=== PATIENT | female | born 1975 | race Caucasian/White ===

== ENCOUNTER 2020-10-13 10:34 | Outpatient (REF) | payer OTHER, SELFPAY ==
[2020-10-13 13:57] LABS: Hematocrit 39.7 % (37-47); Hemoglobin 12.7 g/dl (12.0-16.0); Mean Corpuscular Hemoglobin 29.9 pg (27.0-33.0); Mean Corpuscular Volume 93.4 fL (80-98); Mean Platelet Volume 9.7 fL (9.4-12.3); Platelet Count 349 X10*3/uL (160-400); Red Blood Count 4.25 X10*6/uL (4.20-5.50); White Blood Count 5.1 X10*3/uL (4.8-10.8)
[2020-10-13 14:10] LABS: Glucose Urine UA NEG (NEG); Leukocyte Esterase Urine NEG (NEG); Nitrite Urine NEG (NEG); Specific Gravity - Urine >= 1.030 (1.005-1.025); Urine Blood 2+ (NEG); Urine Ketones NEG (NEG); Urine Protein NEG (NEG-TRACE)
[2020-10-13 14:13] LABS: Appearance Urine CLOUDY; Color Urine YELLOW
[2020-10-13 14:40] LABS: Amorphous Sediment Urine 4+ /LPF; RBC Urine 0-2 /HPF (0); Squamous Epithelial Cell Urine 1+ /LPF; WBC Urine 0 /HPF (0-4)
[2020-10-13 14:50] LABS: Alanine Aminotransferase 21 U/L (0-31); Albumin Level 4.1 g/dL (3.5-5.0); Alkaline Phosphatase 45 U/L (39-117); Anion Gap 15 (12-20); Aspartate Amino Transferase 16 U/L (5-31); Bilirubin Total < 0.2 mg/dL (0.0-1.0); Blood Urea Nitrogen 19 mg/dL (9-16); Calcium 9.1 mg/dL (8.4-10.2); Carbon Dioxide 24 mmol/L (22-29); Chloride 106 mmol/L (96-108); Cholesterol 311 mg/dL; Estimated Glomerular Filt Rate > 60; Glucose Fasting 123 mg/dL (60-99); HDL Cholesterol 73 mg/dL; Iron 66 mcg/dL (30-160); LDL Cholesterol Calculated 191 mg/dl; Percent Iron Saturation 18 % (15-50); Sodium 140 mmol/L (135-145); Total Iron Binding Capacity 369 mcg/dL (228-428); Total Protein 7.1 g/dL (6.5-8.0); Triglycerides 237 mg/dL; Unsaturated Iron Binding 303 ug/dL
[2020-10-13 14:51] LABS: TSH reflex Free T4 0.86 uIU/mL (0.32-4.0)
[2020-10-13 15:11] LABS: Folate 14.7 ng/mL (> or = 4.0); Vitamin B12 605 pg/mL (200-900)
== END 2020-10-13 10:35 | disposition home or self-care (01) ==
LOC: HO.HMGCLDS 10:34
PROVIDERS: PCP Internal Medicine; Visit Provider Internal Medicine
DX: M79.673 Pain in unspecified foot (principal); Z00.00 Encounter for general adult medical examination without abnormal findings
CPT/HCPCS: 36415; 80053; 80061; 81001; 82607; 82746; 83540; 84443; 85027

== ENCOUNTER 2022-01-03 11:19 | Outpatient (REF) | payer OTHER, SELFPAY ==
[2022-01-03 13:56] LABS: MANUAL DIFF FLAG NO
[2022-01-03 14:10] LABS: Basophils Absolute Auto 0.1 X10*3/uL (0.0-0.2); Basophils Percent Auto 1.2 % (0-2); Eosinophils Absolute Auto 0.2 X10*3/uL (0.0-0.4); Eosinophils Percent Auto 4.2 % (0-4); Hematocrit 41.6 % (37.0-47.0); Hemoglobin 13.3 g/dl (12.0-16.0); Imm Gran Abs Auto 0.04 X10*3/uL (0.00-0.03); Imm Gran Pct Auto 0.7 % (0.0-0.4); Lymphocytes Absolute Auto 1.5 X10*3/uL (1.2-4.9); Lymphocytes Percent Auto 25.9 % (20-40); Mean Corpuscular Hemoglobin 28.9 pg (27.0-33.0); Mean Corpuscular Volume 90.2 fL (80.0-98.0); Mean Platelet Volume 9.6 fL (9.4-12.3); Monocytes Absolute Auto 0.5 X10*3/uL (0.1-1.2); Monocytes Percent Auto 8.1 % (2-11); Neutrophils Absolute Auto 3.4 x10*3/uL (2.0-8.3); Neutrophils Percent Auto 59.9 % (45-73); Platelet Count 353 X10*3/uL (160-400); Red Blood Count 4.61 X10*6/uL (4.20-5.50); Red Cell Distribution Width 11.9 % (11.0-16.0); White Blood Count 5.7 X10*3/uL (4.8-10.8)
[2022-01-03 14:12] LABS: Estimated Average Glucose 128 mg/dL; Hemoglobin A1c % 6.1 %
[2022-01-03 14:20] LABS: Alanine Aminotransferase 35 U/L (0-31); Albumin Level 4.2 g/dL (3.5-5.0); Alkaline Phosphatase 68 U/L (39-117); Anion Gap 13 (12-20); Aspartate Amino Transferase 24 U/L (5-31); Bilirubin Total 0.5 mg/dL (0.0-1.0); Blood Urea Nitrogen 19 mg/dL (9-16); Calcium 9.8 mg/dL (8.4-10.2); Carbon Dioxide 27 mmol/L (22-29); Chloride 106 mmol/L (96-108); Cholesterol 274 mg/dL; Estimated Glomerular Filt Rate > 60; Glucose Fasting 123 mg/dL (60-99); HDL Cholesterol 76 mg/dL; LDL Cholesterol Calculated 176 mg/dl; Potassium 5.2 mmol/L (3.3-5.1); Sodium 141 mmol/L (135-145); Total Protein 7.3 g/dL (6.5-8.0); Triglycerides 111 mg/dL
== END 2022-01-03 11:20 | disposition home or self-care (01) ==
LOC: HO.HMGCLDS 11:19
PROVIDERS: PCP Internal Medicine; Visit Provider Internal Medicine
DX: E78.5 Hyperlipidemia, unspecified (principal); I10 Essential (primary) hypertension; R73.9 Hyperglycemia, unspecified
CPT/HCPCS: 36415; 80053; 80061; 82550; 83036; 85025

== ENCOUNTER 2023-01-15 13:17 | Emergency (ER) | payer OTHER, SELFPAY ==
[2023-01-15 13:21] VITALS: BP 174/81; PULSE 68; RESP 18; TEMP 36.7; O2SAT 100; BMI 29.1
--- NOTE | 2023-01-15 13:27 | ED_ITS ---
HPI - General Adult General Chief complaint: General Medical Stated complaint: High Blood Pressure Headache Time Seen by Provider: 01/15/23 16:45 Source: patient Mode of arrival: ambulatory Limitations: no limitations History of Present Illness HPI narrative: 47-year-old female presents with hypertensive urgency. Patient has a history of hypertension. Over last 3 days, patient has been describing a zijh-jr-vpxfqgyz headache. The headache is bitemporal and frontal. Was not sudden in onset. Intermittent with a gradual onset. Her current pain level as a 4/10. There is no photo or phonophobia. There is no neck pain or stiffness. She has no focal deficits. She denies any nausea vomiting. She denies any chest pain, shortness breath or palpitations. Patient has had similar symptoms when she was 1st d iagnosed with hypertension. She is currently taking 5 mg of olmesartan but increased to 10 mg. She has had no improvement with the 10 mg. Related Data Previous Rx's Medication Instructions Recorded acyclovir 5 % topical ointment 1 appl topical 6XD 7 days #30 grams 10/29/21 coenzyme Q10 75 mg capsule (Ultra 75 mg PO DAILY #30 caps 01/03/22 CoQ10) citalopram 40 mg tablet 40 mg PO DAILY 90 days #90 tabs 01/07/22 metformin 750 mg tablet,extended 750 mg PO DAILY #90 tabs 02/11/22 release 24 hr rosuvastatin 20 mg tablet (Crestor) 20 mg PO DAILY #90 tabs 02/11/22 olmesartan 5 mg tablet 5 mg PO DAILY #90 tabs 04/23/22 labetalol 100 mg tablet 100 mg PO BID #14 tabs 01/15/23 Allergies Allergy/AdvReac Type Severity Reaction Status Date / Time pravastatin AdvReac Intermediate myalgia Verified 01/15/23 12:22 Review of Systems Review of Systems: CONSTITUTIONAL: Denies weight loss, fever and chills. HEENT: Denies changes in vision and hearing. RESPIRATORY: Denies SOB and cough. CV: Denies palpitations no CP. GI: Denies abdominal pain, nausea, vomiting and diarrhea. : Denies dysuria and urinary frequency. MSK: Denies myalgia and joint pain. SKIN: Denies rash and pruritus. NEUROLOGICAL: + headache - syncope. PSYCHIATRIC: recent changes in mood. Denies anxiety and depression. All other ROS are negative unless in HPI [facility] Past Medical History Medical History Annual physical exam Anxiety Back pain Foot pain HTN (hypertension) Hyperglycemia Hyperlipidemia Ovarian cyst Right tennis elbow Type 2 diabetes mellitus Family History Family History Father No problems noted. Mother Non-insulin dependent diabetes mellitus Daughter No problems noted. Brother No problems noted. Brother No problems noted. Brother No problems noted. Brother No problems noted. Social History Social History Housing: House Alcohol intake: never Patient Tobacco Use Status: Never used Tobacco e-Cigarette/Vaping Use: Never Used Advance Directives: No Advance Directives Information Provided: Yes Current occupational status: employed Cognitive needs: No Hearing needs: No Vision needs: Yes Physical Exam ED Vital Signs: Vital Signs - 24 hr 01/15/23 13:21 01/15/23 15:28 01/15/23 17:21 Temperature 98.1 F 97.7 F Pulse Rate 68 62 71 Respiratory Rate 18 16 18 Blood Pressure 174/81 H 220/103 H 198/98 H Pulse Oximetry 100 100 100 Oxygen Delivery Method Room Air Room Air Room Air 01/15/23 18:00 Temperature Pulse Rate 65 Respiratory Rate 16 Blood Pressure 155/82 H Pulse Oximetry 98 Oxygen Delivery Method Room Air BMI result Body Mass Index 29.1 GEN: Well developed, no acute distress, alert, oriented HEENT: Normocephalic, atraumatic, normal external ears, nose appears normal, no oropharyngeal edema or exudates Eyes: Normal to appearance Neck: Supple, no lymphadenopathy Respiratory: Talks in complete sentences, no respiratory distress, clear to auscultation bilaterally Cardiovascular: Regular rate and rhythm, no murmurs rubs or gallops Abdomen: Soft, nontender, nondistended, no guarding, no rebound Back: No CVA tenderness Extremities: No clubbing cyanosis or edema Neurologic: No focal neurologic deficits, cranial nerves 2-12 intact, strength is 5/5 bilaterally Skin: No rash Course Course Course Narrative: RME- 47-year-old female with past medical history significant for diabetes, hypertension presents for evaluation of high blood pressure. Patient reports her blood pressure has been elevated for the last 4 days. She takes olmesartan 5 mg daily but has been taking double dose for the last 4 days and her blood pressure in triage was 174/81. Patient appears well, denies chest pain or shortness of breath Reevaluation(s) Reevaluation #1: The workup is complete. Her blood pressure is significantly improved. Our goal was for a 20% reduction however she responded very well to labetalol. She will continue to take labetalol 100 mg twice daily and almost started 5 mg daily. She should follow-up with her primary care provider. The CT scan of her head did not identify any intracranial findings. EKG identified no evidence of LVH and her basic metabolic panel identified no evidence of hypokalemia or renal dysfunction. All results were discussed with the patient. Understands our plan. Time: 18:40 Medications Administered Discontinued Medications Generic Name Dose Route Start Last Admin Trade Name Freq PRN Reason Stop Dose Admin Labetalol HCl 100 mg 01/15/23 16:45 01/15/23 16:59 Labetalol Hcl 100 Mg Tablet PO 01/15/23 16:46 100 mg ONCE ONE Administration Protocol Medical Decision Making Medical Decision Making MDM Narrative: 47-year-old female presents with hypertensive urgency. She does have a mild headache. Examination is benign. See the differential diagnosis below. Would like to rule out renal dysfunction with metabolic panel. Will rule LVH and chronic medium remodeling with an EKG. Patient is currently on 5-10 mg of olme sartan daily. This appears to be a low-dose. However, she did double the medication and has had no change in her blood pressure readings. I suspect patient will require a 2nd agent in order to better control her blood pressure and have a synergistic effect of the olmesartan. Patient did take the olmesartan earlier. Would probably choose the labetalol versus amlodipine. I am leaning on the side of labetalol at this time as this may also improve her headache. There is no emergent indication for imaging at this time she has no focal deficits, pain is mild to moderate. She has no neck stiffness. This was not sudden onset. Doubt subarachnoid hemorrhage. Will re-evaluate the patient and should there be any clinical changes, would consider CT scan at that time. Patient may warrant hospitalization of her blood pressure is not under control prior to potential disposition. Differential Diagnosis Differential Diagnoses: The differential diagnosis associated with the presentation includes (Hypertension of urgency, renal dysfunction, hypokalemia, electrolyte abnormality, stress, anxiety, essential hypertension, renal vascular disease) Hypertension, hypertensive urgency Admission/Observation Consideration of admission/observation: Escalation of care including admission/observation considered (If blood pressure does not become control, patient may warrant hospitalization for blood pressure management) Lab Data MDM Lab Attestation statement: I reviewed the patient's lab results. 01/15/23 16:53 Labs: Lab Results 01/15/23 Range/Units 16:53 Sodium 142 (135-145) mmol/L Potassium 4.1 D (3.3-5.1) mmol/L Chloride 106 (96-108) mmol/L Carbon Dioxide 27 (22-29) mmol/L Anion Gap 13 (12-20) BUN 19 H (9-16) mg/dL Creatinine 0.76 (0.5-1.4) mg/dL Estim Creat Clear Calc 83.2 Estimated GFR > 60 Random Glucose 121 H (60-115) mg/dL Calcium 9.4 (8.4-10.2) mg/dL Independent Interpretation I performed an independent interpretation of an: EKG (Normal sinus rhythm heart rate 64, normal intervals, no acute ST elevations depressions, no evidence of LVH) and CT Scan (Head: No acute intracranial findings) Radiology Impression Discussion of test interpretation with radiology: I have reviewed the radiologist's reading. ( CT/CT head/brain wo IV con IMPRESSION: Unremarkable exam. Dictated By:Puja Mccormickigned By:<Electronically signed by Puja Mccormick MD in [place]>01/15/23 6035) External Record Review External record reviewed: Outpatient record (Urgent care from earlier today) Tests considered The following testing was considered but not selected: CT head: Patient reports mild headache, no meningeal signs, no nuchal rigidity, no sudden-onset headache doubt subarachnoid hemorrhage or need for emergent imaging at this time, consider re-evaluation for study upon my clinical re- evaluation of patient. Prescription Management I considered prescription management with: Pain Medication and Other (Antihypertensive medications) Chronic Conditions Patient?s care impacted by: Hypertension Discharge Plan Discharge Clinical Impression: Hypertensive urgency Patient Disposition: Home, Self-Care Instructions: Chronic Hypertension (ED), DASH Eating Plan (ED), Hypertensive Crisis (ED) Additional Instructions: Please continue your almost started at 5 mg daily. Add labetalol 100 mg twice daily. I am recommending close follow-up with her primary care provider within the next couple days for repeat blood pressure check and medication adjustment. Should you have worsening or concerning symptoms, please return to the emergency department for re-evaluation. Prescriptions: New labetalol 100 mg tablet 100 mg PO BID Qty: 14 0RF No Action acyclovir 5 % ointment 1 appl topical 6XD 7 Days Qty: 30 0RF citalopram 40 mg tablet 40 mg PO DAILY 90 Days Qty: 90 3RF olmesartan 5 mg tablet 5 mg PO DAILY Qty: 90 3RF rosuvastatin [Crestor] 20 mg tablet 20 mg PO DAILY Qty: 90 3RF metformin 750 mg tablet extended release 24 hr 750 mg PO DAILY Qty: 90 3RF Ultra CoQ10 75 mg capsule 75 mg PO DAILY Qty: 30 4RF Referrals: Valerie Lazaro MD [Primary Care Provider] - 2 days
[2023-01-15 15:28] VITALS: BP 220/103; PULSE 62; RESP 16; TEMP 36.5; O2SAT 100
[2023-01-15 17:21] VITALS: BP 198/98; PULSE 71; RESP 18; O2SAT 100
[2023-01-15 18:00] VITALS: BP 155/82; PULSE 65; RESP 16; O2SAT 98
== END 2023-01-15 18:46 | disposition home or self-care (01) ==
PROVIDERS: Emergency Provider Emergency Medicine; PCP Internal Medicine
DX: I16.0 Hypertensive urgency (principal); E11.9 Type 2 diabetes mellitus without complications; I10 Essential (primary) hypertension; E78.5 Hyperlipidemia, unspecified; Z79.84 Long term (current) use of oral hypoglycemic drugs; Z79.899 Other long term (current) drug therapy
CPT/HCPCS: 36415; 70450; 80048; 93005; 99284

== ENCOUNTER 2023-02-10 07:16 | Outpatient (REF) | payer OTHER, SELFPAY ==
[2023-02-10 12:29] LABS: Alanine Aminotransferase 26 U/L (0-31); Alkaline Phosphatase 85 U/L (39-117); Anion Gap 17 (12-20); Aspartate Amino Transferase 18 U/L (5-31); Bilirubin Total 0.3 mg/dL (0.0-1.0); Blood Urea Nitrogen 19 mg/dL (9-16); Calcium 9.7 mg/dL (8.4-10.2); Carbon Dioxide 22 mmol/L (22-29); Chloride 108 mmol/L (96-108); Cholesterol 313 mg/dL; Estimated Glomerular Filt Rate > 60; Glucose Fasting 140 mg/dL (60-99); HDL Cholesterol 56 mg/dL; LDL Cholesterol Calculated 213 mg/dl; Potassium 4.4 mmol/L (3.3-5.1); Sodium 143 mmol/L (135-145); Total Protein 7.2 g/dL (6.5-8.0); Triglycerides 222 mg/dL
[2023-02-10 16:17] LABS: Estimated Average Glucose 134 mg/dL; Hemoglobin A1c % 6.3 %
== END 2023-02-10 07:17 | disposition home or self-care (01) ==
LOC: HO.HMGCLDS 07:16
PROVIDERS: PCP Internal Medicine; Visit Provider Internal Medicine
DX: Z00.00 Encounter for general adult medical examination without abnormal findings (principal); I10 Essential (primary) hypertension; E78.5 Hyperlipidemia, unspecified; R73.9 Hyperglycemia, unspecified
CPT/HCPCS: 36415; 80053; 80061; 83036

== ENCOUNTER 2023-02-12 11:24 | Outpatient (AMB) | payer OTHER, SELFPAY ==
--- NOTE | 2023-02-12 11:51 | A.OFFPC_ITS ---
Vital Signs 02/12/23 11:53 Weight 160 lb 2 oz BP 120/74 Blood Pressure Location Rt brachial Position Sitting Pulse 76 Pulse Source Pulse Oximeter Pulse Oximetry (%) 97 Oxygen Delivery Method Room Air Intake Visit Reasons: PE Allergies pravastatin Adverse Reaction (Intermediate, Verified 02/12/23 11:53) myalgia Medication List - Last Reconciled 02/12/23 by Valerie Lazaro MD acyclovir 5% 1 appl topical 6XD 7 days amlodipine-olmesartan 5-20 mg 1 tab PO DAILY citalopram 40 mg PO DAILY 90 days coenzyme Q10 60 mg PO DAILY labetalol 100 mg PO BID rosuvastatin (Crestor) 5 mg PO DAILY Tobacco use date assessed: 02/12/23 Dental Screening Dental Screen Date: 02/12/23 Did you have a dental visit in the last 12 months?: Yes Did you have a dental problem in the last 6 months where you did not have access to dental care?: No Was dental information given to patient?: Patient has dentist HPI PE HPI Details Patient presents for physical. She will to the ER month ago with complaint of headache and high blood pressure. Patient was started on labetalol and continue to take 5 mg of olmesartan [facility] Medical History (Updated 02/12/23 @ 12:34 by Valerie Lazaro MD) Annual physical exam Anxiety Back pain Foot pain HTN (hypertension) Hyperglycemia Hyperlipidemia Ovarian cyst Right tennis elbow Type 2 diabetes mellitus Family History Father No problems noted. Mother Non-insulin dependent diabetes mellitus Daughter No problems noted. Brother No problems noted. Brother No problems noted. Brother No problems noted. Brother No problems noted. Social History Housing: House Alcohol intake: never Patient Tobacco Use Status: Never used Tobacco e-Cigarette/Vaping Use: Never Used Current occupational status: employed Cognitive needs: No Hearing needs: No Vision needs: Yes Questionnaire Thrive Questionnaire Date Thrive assessed: 02/11/22 AUDIT C Alcohol Use Questionnaire (AUDIT-C) 1. How often do you have a drink containing alcohol?: 2-3 times a week 2. How many drinks containing alcohol do you have on a typical day when you are drinking?: 1 or 2 3. How often do you have six or more drinks on one occasion?: Never Total Score: 3 Score Reviewed/Action Taken: No ASUNCION-7 AMB Questionnaire ASUNCION-7 Date ASUNCION - 7 assessed: 02/11/22 Source: Developed by Drs. Kg Ellington, Elisabeth Sandoval, Jg Yan and colleagues, with an educational jacob from [employer]. Review of Systems Const All systems reviewed & are unremarkable except as noted in HPI and below Reports no additional complaints Eyes Reports no additional complaints ENT Reports no additional complaints Card Reports no additional complaints Resp Reports no additional complaints GI Reports no additional complaints Reports no additional complaints Physical exam (Primary Care) Vital Signs: Last Vital Signs Pulse 76 02/12/23 11:53 BP 120/74 02/12/23 11:53 Pulse Ox 97 02/12/23 11:53 Oxygen Delivery Method Room Air 02/12/23 11:53 Tobacco/Smoking Status: Tobacco use Status Tobacco use date assessed 02/12/23 02/12/23 11:56 Patient Tobacco Use Status Never used Tobacco 02/12/23 11:52 e-Cigarette/Vaping Use Never Used 02/12/23 11:52 Thrive Assessment: Date of Thrive Assessment Date Thrive assessed 02/11/22 02/12/23 11:52 Const General: no acute distress HENMT Head: Yes normal to inspection Ears: hearing grossly normal bilaterally Face and sinus: Yes normal facial exam Eyes General: appearance normal, both eyes and all related structures Neck Neck: Yes no lymphadenopathy and Yes supple Resp Effort & Inspection: normal respiratory effort Auscultation: clear to auscultation bilaterally Cardio Rhythm: regular rhythm Heart sounds: S1 normal heart sound present and S2 normal heart sound present GI Inspection: Yes normal to inspection Palpation (GI): Soft to palpation Percussion: Yes normal to percussion Auscultation: normal bowel sounds Assessment and Plan Assessment & Plan (1) Type 2 diabetes mellitus: Comment: A1C 6.3, PATIENT DECLINED TAKING METFORMIN Code(s): E11.9 - Type 2 diabetes mellitus without complications Plan: ADA DIET INCREASE EXERCISE WEIGHT LOSS DISCUSSED WITH THE PATIENT. (2) HTN (hypertension): Code(s): I10 - Essential (primary) hypertension Plan: Start amlodipine with olmesartan 5/20 and continue labetalol for 1 month. (3) Hyperlipidemia: Comment: Intolerant to pravastatin, myalgia Code(s): E78.5 - Hyperlipidemia, unspecified Plan: Try 5 mg of Crestor with CO Q10 check lipid profile in 1 month (4) Annual physical exam: Comment: Pap and mammogram by stockbroking dealer Code(s): Z00.00 - Encounter for general adult medical examination without abnormal findings Plan: Well-balanced diet regular exercise discussed with the patient. She will think about colonoscopy Orders: Orders Comprehensive Met. Panel 1 Month E11.9 - Type 2 diabetes mellitus without complications, E78.5 - Hyperlipidemia, unspecified, I10 - Essential (primary) hypertension Lipid Panel 1 Month E11.9 - Type 2 diabetes mellitus without complications, E78.5 - Hyperlipidemia, unspecified, I10 - Essential (primary) hypertension Hemoglobin A1c 1 Month E11.9 - Type 2 diabetes mellitus without complications, E78.5 - Hyperlipidemia, unspecified, I10 - Essential (primary) hypertension Medications: New coenzyme Q10 60 mg PO DAILY 90 caps 1RF amlodipine-olmesartan 5-20 mg 1 tab PO DAILY 30 tabs 1RF rosuvastatin (Crestor) 5 mg PO DAILY 30 tabs 0RF Refilled labetalol 100 mg PO BID 60 tabs 1RF citalopram 40 mg PO DAILY 90 days 90 tabs 3RF Discontinued olmesartan Discontinued Reason: Doctor's Order 5 mg PO DAILY 90 tabs 3RF Coding Level of Care Code Est Pt Prev Care 40-64y(43133) Diagnoses Type 2 diabetes mellitus E11.9 HTN (hypertension) I10 Hyperlipidemia E78.5 Annual physical exam Z00.00
[2023-02-12 11:53] VITALS: BP 120/74; PULSE 76; O2SAT 97
== END 2023-02-12 12:34 | disposition home or self-care (01) ==
PROVIDERS: Visit Provider Internal Medicine
DX: E11.9 Type 2 diabetes mellitus without complications (principal); I10 Essential (primary) hypertension; E78.5 Hyperlipidemia, unspecified; Z00.00 Encounter for general adult medical examination without abnormal findings
CPT/HCPCS: 99396

== ENCOUNTER 2023-04-19 10:11 | Outpatient (REF) | payer OTHER, SELFPAY | END 2023-04-19 10:12 | disposition home or self-care (01) | LOC: HO.HMGCLDS 10:11 | PROVIDERS: PCP Internal Medicine; Visit Provider Internal Medicine | DX: E11.9 Type 2 diabetes mellitus without complications (principal); I10 Essential (primary) hypertension; E78.5 Hyperlipidemia, unspecified | CPT/HCPCS: 36415; 80053; 80061; 83036 ==

== ENCOUNTER 2023-04-24 12:26 | Outpatient (AMB) | payer OTHER, SELFPAY ==
--- NOTE | 2023-04-24 12:31 | MHC.PC.OV ---
Vital Signs 04/24/23 12:32 Height 5 ft 2 in Weight 160 lb BMI 29.3 BP 122/70 Blood Pressure Location Lt brachial Position Sitting Pulse 85 Pulse Source Pulse Oximeter Pulse Oximetry (%) 97 Oxygen Delivery Method Room Air Intake Visit Reasons: 5 week follow up, HTN Intake Note: Pt is here today for 5 weeks follow up visit. Allergies pravastatin Adverse Reaction (Intermediate, Verified 04/24/23 12:34) myalgia Medication List - Last Reconciled 04/24/23 by Valerie Lazaro MD acyclovir 5% 1 appl topical 6XD 7 days amlodipine-olmesartan 5-20 mg 1 tab PO DAILY citalopram 40 mg PO DAILY 90 days coenzyme Q10 60 mg PO DAILY labetalol 100 mg PO BID rosuvastatin (Crestor) 10 mg PO DAILY Tobacco use date assessed: 04/24/23 HPI 5 week follow up, HTN HPI Details Patient presents for the follow-up on hypertension hyperlipidemia stable on current medications. Patient has been following ADA diet for hyperglycemia. [facility] Medical History HTN (hypertension) Right tennis elbow Hyperglycemia Annual physical exam Foot pain Type 2 diabetes mellitus Ovarian cyst Back pain Hyperlipidemia Anxiety Family History Father No problems noted. Mother Non-insulin dependent diabetes mellitus Daughter No problems noted. Brother No problems noted. Brother No problems noted. Brother No problems noted. Brother No problems noted. Social History Housing: House Alcohol intake: never Patient Tobacco Use Status: Never used Tobacco e-Cigarette/Vaping Use: Never Used Current occupational status: employed Cognitive needs: No Hearing needs: No Vision needs: Yes Questionnaire Thrive Questionnaire Date Thrive assessed: 02/11/22 ASUNCION-7 AMB Questionnaire ASUNCION-7 Date ASUNCION - 7 assessed: 02/11/22 Source: Developed by Drs. Kg Ellington, Elisabeth Sandoval, Jg Yan and colleagues, with an educational jacob from [employer] Review of Systems Const All systems reviewed & are unremarkable except as noted in HPI and below Reports no additional complaints Eyes Reports no additional complaints ENT Reports no additional complaints Card Reports no additional complaints Resp Reports no additional complaints GI Reports no additional complaints Reports no additional complaints Physical exam (Primary Care) Vital Signs: Last Vital Signs Pulse 85 04/24/23 12:32 BP 122/70 04/24/23 12:32 Pulse Ox 97 04/24/23 12:32 Oxygen Delivery Method Room Air 04/24/23 12:32 BMI result Body Mass Index 29.3 Tobacco/Smoking Status: Tobacco use Status Tobacco use date assessed 04/24/23 04/24/23 12:36 Patient Tobacco Use Status Never used Tobacco 04/24/23 12:31 e-Cigarette/Vaping Use Never Used 04/24/23 12:31 Thrive Assessment: Date of Thrive Assessment Date Thrive assessed 02/11/22 04/24/23 12:31 Const General: no acute distress HENMT Head: Yes normal to inspection Ears: hearing grossly normal bilaterally Face and sinus: Yes normal facial exam Mouth: Normal oral and palatal mucosa present Eyes General: appearance normal, both eyes and all related structures Neck Neck: Yes supple Resp Effort & Inspection: normal respiratory effort Auscultation: clear to auscultation bilaterally Cardio Rhythm: regular rhythm Heart sounds: S1 normal heart sound present and S2 normal heart sound present GI Inspection: Yes normal to inspection Palpation (GI): Soft to palpation Assessment and Plan Assessment & Plan (1) Type 2 diabetes mellitus: Comment: A1C 6.3, PATIENT DECLINED TAKING METFORMIN Code(s): E11.9 - Type 2 diabetes mellitus without complications Plan: A1c is 6.3, ADA diet increase physical activity discussed with the patient. She will try metformin 750 mg a day. Patient follow-up in 3 months with a fasting labs before (2) HTN (hypertension): Code(s): I10 - Essential (primary) hypertension Plan: Continue current medications (3) Hyperlipidemia: Comment: Intolerant to pravastatin, myalgia Code(s): E78.5 - Hyperlipidemia, unspecified Plan: Increase Crestor to 10 mg a day check lipid profile in 3 months Orders: Orders Complete Blood Count Auto Diff 3 Months E11.9 - Type 2 diabetes mellitus without complications, E78.5 - Hyperlipidemia, unspecified, I10 - Essential (primary) hypertension Comprehensive [place]. Panel Fast 3 Months E11.9 - Type 2 diabetes mellitus without complications, E78.5 - Hyperlipidemia, unspecified, I10 - Essential (primary) hypertension Hemoglobin A1c 3 Months E11.9 - Type 2 diabetes mellitus without complications, E78.5 - Hyperlipidemia, unspecified, I10 - Essential (primary) hypertension Lipid Panel 3 Months E11.9 - Type 2 diabetes mellitus without complications, E78.5 - Hyperlipidemia, unspecified, I10 - Essential (primary) hypertension Microalbumin, Random (w Creat) 3 Months E11.9 - Type 2 diabetes mellitus without complications, E78.5 - Hyperlipidemia, unspecified, I10 - Essential (primary) hypertension Medications: New rosuvastatin (Crestor) 10 mg PO DAILY 90 tabs 3RF blood-glucose sensor (FreeStyle Vincenzo 3 Sensor device) As directed 2 ea 6RF metformin ER 750 mg PO DAILY 90 tabs 0RF Refilled amlodipine-olmesartan 5-20 mg 1 tab PO DAILY 90 tabs 3RF Discontinued labetalol Discontinued Reason: Doctor's Order 100 mg PO BID 60 tabs 1RF rosuvastatin (Crestor) Discontinued Reason: Doctor's Order 5 mg PO DAILY 30 tabs 0RF Coding Level of Care Code Est Pt Level 4 (02425) Diagnoses Type 2 diabetes mellitus E11.9 HTN (hypertension) I10 Hyperlipidemia E78.5
[2023-04-24 12:32] VITALS: BP 122/70; PULSE 85; O2SAT 97; BMI 29.3
== END 2023-04-24 13:07 | disposition home or self-care (01) ==
PROVIDERS: PCP Internal Medicine; Visit Provider Internal Medicine
DX: E11.9 Type 2 diabetes mellitus without complications (principal); I10 Essential (primary) hypertension; E78.5 Hyperlipidemia, unspecified
CPT/HCPCS: 99214

== ENCOUNTER 2023-08-02 10:29 | Outpatient (REF) | payer OTHER, SELFPAY ==
[2023-08-02 11:29] LABS: MANUAL DIFF FLAG NO
[2023-08-02 11:41] LABS: Basophils Absolute Auto 0.1 X10*3/uL (0.0-0.2); Basophils Percent Auto 1.3 % (0-2); Eosinophils Absolute Auto 0.1 X10*3/uL (0.0-0.4); Eosinophils Percent Auto 2.6 % (0-4); Hematocrit 40.4 % (37.0-47.0); Hemoglobin 13.2 g/dl (12.0-16.0); Imm Gran Abs Auto 0.03 X10*3/uL (0.00-0.03); Imm Gran Pct Auto 0.5 % (0.0-0.4); Lymphocytes Absolute Auto 1.5 X10*3/uL (1.2-4.9); Lymphocytes Percent Auto 26.7 % (20-40); Mean Corpuscular HGB Conc 32.7 g/dl (31.0-35.0); Mean Corpuscular Hemoglobin 28.9 pg (27.0-33.0); Mean Corpuscular Volume 88.6 fL (80.0-98.0); Mean Platelet Volume 9.3 fL (9.4-12.3); Monocytes Absolute Auto 0.3 X10*3/uL (0.1-1.2); Monocytes Percent Auto 5.9 % (2-11); Neutrophils Absolute Auto 3.5 x10*3/uL (2.0-8.3); Platelet Count 350 X10*3/uL (160-400); Red Blood Count 4.56 X10*6/uL (4.20-5.50); Red Cell Distribution Width 11.7 % (11.0-16.0); White Blood Count 5.5 X10*3/uL (4.8-10.8)
[2023-08-02 11:45] LABS: Estimated Average Glucose 134 mg/dL; Hemoglobin A1c % 6.3 % (<6.0)
[2023-08-02 12:02] LABS: Alanine Aminotransferase 34 U/L (0-31); Albumin Level 4.1 g/dL (3.5-5.0); Alkaline Phosphatase 86 U/L (39-117); Anion Gap 11 (12-20); Aspartate Amino Transferase 23 U/L (5-31); Bilirubin Total 0.3 mg/dL (0.0-1.0); Blood Urea Nitrogen 18 mg/dL (9-16); Calcium 9.5 mg/dL (8.4-10.2); Carbon Dioxide 27 mmol/L (22-29); Chloride 107 mmol/L (96-108); Cholesterol 202 mg/dL (<200); Estimated Glomerular Filt Rate > 60; Glucose Fasting 121 mg/dL (60-99); HDL Cholesterol 66 mg/dL (>40); LDL Cholesterol Calculated 108 mg/dL (<100); Potassium 4.3 mmol/L (3.3-5.1); Sodium 141 mmol/L (135-145); Total Protein 7.4 g/dL (6.5-8.0); Triglycerides 140 mg/dL (<150)
[2023-08-02 13:49] LABS: Creatinine Urine 144.68 mg/dL; Microalbum/Creatinine Ratio Ur 7.6 ug/mg cr (<30)
== END 2023-08-02 10:30 | disposition home or self-care (01) ==
LOC: HO.HMGCLDS 10:29
PROVIDERS: PCP Internal Medicine; Visit Provider Internal Medicine
DX: E11.9 Type 2 diabetes mellitus without complications (principal); E78.5 Hyperlipidemia, unspecified; I10 Essential (primary) hypertension
CPT/HCPCS: 36415; 80053; 80061; 82043; 82570; 83036; 85025

== ENCOUNTER 2023-08-06 09:34 | Outpatient (AMB) | payer OTHER, SELFPAY ==
[2023-08-06 09:53] VITALS: BP 132/80; PULSE 70; O2SAT 99
--- NOTE | 2023-08-06 09:53 | A.OFFPC_ITS ---
Vital Signs 08/06/23 09:53 Height 5 ft 2 in Weight 164 lb BMI 30.0 BP 132/80 Blood Pressure Location Lt brachial Position Sitting Pulse 70 Pulse Source Pulse Oximeter Pulse Oximetry (%) 99 Oxygen Delivery Method Room Air Intake Visit Reasons: 3 month follow up DM / HTN Intake Note: Pt is here today for 3 months follow up visit on DM and HTN. Pt states that she has been having headaches for last 2 weeks. Allergies pravastatin Adverse Reaction (Intermediate, Verified 08/06/23 09:57) myalgia Medication List - Last Reconciled 08/06/23 by Valerie Lazaro MD acyclovir 5% 1 appl topical 6XD 7 days amlodipine-olmesartan 5-20 mg 1 tab PO DAILY blood-glucose sensor (Intent HQStyle Vincenzo 3 Sensor device) As directed citalopram 40 mg PO DAILY 90 days coenzyme Q10 60 mg PO DAILY dapagliflozin propanediol (Farxiga) 5 mg PO DAILY meloxicam 15 mg PO DAILY metformin ER 750 mg PO DAILY rosuvastatin (Crestor) 10 mg PO DAILY Tobacco use date assessed: 08/06/23 Dental Screening Dental Screen Date: 08/06/23 Did you have a dental visit in the last 12 months?: Yes Did you have a dental problem in the last 6 months where you did not have access to dental care?: No Was dental information given to patient?: Patient has dentist HPI 3 month follow up DM / HTN HPI Details Pt presents for follow-up of hypertension type 2 diabetes and hyperlipidemia. She complains of 2 weeks of daily CHERRY right foot occipital region and neck pain and stiffness. Patient denies nausea vomiting change in vision weakness or numbness in extremities. She has been under increased stress at work [employer] [employer] [employer] Medical History HTN (hypertension) Right tennis elbow Hyperglycemia Annual physical exam Foot pain Type 2 diabetes mellitus Ovarian cyst Back pain Hyperlipidemia Anxiety Family History Father No problems noted. Mother Non-insulin dependent diabetes mellitus Daughter No problems noted. Brother No problems noted. Brother No problems noted. Brother No problems noted. Brother No problems noted. Social History Housing: House Alcohol intake: never Patient Tobacco Use Status: Never used Tobacco e-Cigarette/Vaping Use: Never Used Current occupational status: employed Cognitive needs: No Hearing needs: No Vision needs: Yes Questionnaire PHQ-9 Over the last 2 weeks, how often have you been bothered by any of the following problems? 1. Little interest or pleasure in doing things: not at all 2. Feeling down, depressed, or hopeless: several days 3. Trouble falling or staying asleep, or sleeping too much: not at all 4. Feeling tired or having little energy: more than half the days 5. Poor appetite or overeating: not at all 6. Feeling bad about yourself - or that you are a failure or have let yourself or your family down: not at all 7. Trouble concentrating on things, such as reading the newspaper or watching television: not at all 8. Moving or speaking so slowly that other people could have noticed. Or the opposite - being so fidgety or restless that you have been moving around a lot more than usual: not at all 9. Thoughts that you would be better off or of hurting yourself in some way: not at all Total score: 3 Depression Screening Interpretation: Negative Depression Screening Done: Yes Source: Developed by Drs. Kg Ellington, Elisabeth Sandoval, Jg Yan and colleagues, with an educational jacob from [employer]. Thrive Questionnaire Date Thrive assessed: 08/06/23 I am a: Patient What is your living situation today?: I have a steady place to live Within the past 12 months, did the food you bought not last and you didn't have the money to get more?: Never true Within the past 12 months, did you worry whether your food would run out before you got money to buy more?: Never true Do you have trouble paying for medicines?: No Do you have trouble getting transportation to medical appointments?: No Do you have trouble paying your heating and electricity bill?: No Do you have trouble taking care of your child, family member or friend?: No Do you have trouble with day-to-day activities such as bathing, preparing meals, shopping, managing finances, etc.?: No Are you currently unemployed and looking for a job?: No Are you interested in more education?: No Please select the resources that you would like help with: None Currently or been in a relationship where the following occur: no concerns reported THRIVE Score: 0 AUDIT C Alcohol Use Questionnaire (AUDIT-C) 1. How often do you have a drink containing alcohol?: Monthly or less 2. How many drinks containing alcohol do you have on a typical day when you are drinking?: 1 or 2 3. How often do you have six or more drinks on one occasion?: Never Total Score: 1 ASUNCION-7 AMB Questionnaire ASUNCION-7 Date ASUNCION - 7 assessed: 08/06/23 Feeling nervous, anxious, or on edge: 2 = More than half the days Not being able to stop or control worryin = Several days Worrying too much about different things: 1 = Several days Trouble relaxin = Several days Being so restless that it is hard to sit still: 0 = Not at all Becoming easily annoyed or irritable: 2 = More than half the days Feeling afraid as if something awful might happen: 0 = Not at all Total ASUNCION-7 score (0-4 normal; 5-9 mild; 10-14 moderate; 15-21 severe): 7 Source: Developed by Drs. Kg Ellington, Elisabeth Sandoval, Jg Yan and colleagues, with an educational jacob from [employer]. Review of Systems Const All systems reviewed & are unremarkable except as noted in HPI and below Reports no additional complaints Eyes Reports no additional complaints ENT Reports no additional complaints Card Reports no additional complaints Resp Reports no additional complaints GI Reports no additional complaints Reports no additional complaints Physical exam (Primary Care) Vital Signs: Last Vital Signs Pulse 70 08/06/23 09:53 BP 132/80 08/06/23 09:53 Pulse Ox 99 08/06/23 09:53 Oxygen Delivery Method Room Air 08/06/23 09:53 BMI result Body Mass Index 30.0 Tobacco/Smoking Status: Tobacco use Status Tobacco use date assessed 08/06/23 08/06/23 10:02 Patient Tobacco Use Status Never used Tobacco 08/06/23 10:02 e-Cigarette/Vaping Use Never Used 08/06/23 10:02 Depression Screening Interpretation: Negative Thrive Assessment: Date of Thrive Assessment Date Thrive assessed 02/11/22 08/06/23 10:02 Currently or been in a relationship where the following occur: no concerns reported Const General: no acute distress HENMT Head: Yes normal to inspection Face and sinus: Yes normal facial exam Mouth: Normal oral and palatal mucosa present Throat: Yes posterior oropharynx normal Neck Other: Reproducible tenderness over right occipital and paraspinal cervical region right more than left Neck: Yes no lymphadenopathy and Yes supple Resp Effort & Inspection: normal respiratory effort Auscultation: clear to auscultation bilaterally Cardio Rhythm: regular rhythm Heart sounds: S1 normal heart sound present and S2 normal heart sound present GI Inspection: Yes normal to inspection Palpation (GI): Soft to palpation Auscultation: normal bowel sounds Neuro Cranial nerves: Yes CN's II-XII intact bilaterally Gait exam (Neuro): Normal gait present Assessment and Plan Assessment & Plan (1) Type 2 diabetes mellitus: Comment: A1C 6.3, Code(s): E11.9 - Type 2 diabetes mellitus without complications Plan: ADA diet increase exercise weight loss discussed with the patient. She will increase metformin to 750 mg twice a day, follow-up in 4 months (2) HTN (hypertension): Code(s): I10 - Essential (primary) hypertension Plan: Continue current medications (3) Hyperlipidemia: Comment: Intolerant to pravastatin, myalgia Code(s): E78.5 - Hyperlipidemia, unspecified Plan: Continue low-cholesterol diet (4) Headache: Code(s): R51.9 - Headache, unspecified Plan: For tension headache stress management discussed with the patient, neck stretching exercises and massage recommended. Meloxicam for 1 week is prescribed Orders: Orders Comprehensive [place]. Panel Fast 4 Months E11.9 - Type 2 diabetes mellitus without complications, E78.5 - Hyperlipidemia, unspecified, I10 - Essential (primary) hypertension, R51.9 - Headache, unspecified Hemoglobin A1c 4 Months E11.9 - Type 2 diabetes mellitus without complications, E78.5 - Hyperlipidemia, unspecified, I10 - Essential (primary) hypertension, R51.9 - Headache, unspecified Lipid Panel 4 Months E11.9 - Type 2 diabetes mellitus without complications, E78.5 - Hyperlipidemia, unspecified, I10 - Essential (primary) hypertension, R51.9 - Headache, unspecified Referrals Cologuard Test E11.9 - Type 2 diabetes mellitus without complications, E78.5 - Hyperlipidemia, unspecified, I10 - Essential (primary) hypertension, R51.9 - Headache, unspecified, Z12.11 - Encounter for screening for malignant neoplasm of colon, Z12.12 - Encounter for screening for malignant neoplasm of rectum Medications: New meloxicam 15 mg PO DAILY 7 tabs 0RF Changed From metformin ER 750 mg PO DAILY 180 tabs 1RF To metformin ER 1,500 mg (2 x 750 mg) PO DAILY 180 tabs 1RF Refilled metformin ER 750 mg PO DAILY 180 tabs 1RF Discontinued dapagliflozin propanediol (Farxiga) Discontinued Reason: Doctor's Order 5 mg PO DAILY 90 tabs 0RF Coding Level of Care Code Est Pt Level 4 (55748) Diagnoses Type 2 diabetes mellitus E11.9 HTN (hypertension) I10 Hyperlipidemia E78.5 Headache R51.9
== END 2023-08-06 10:57 | disposition home or self-care (01) ==
PROVIDERS: PCP Internal Medicine; Visit Provider Internal Medicine
DX: E11.9 Type 2 diabetes mellitus without complications (principal); I10 Essential (primary) hypertension; E78.5 Hyperlipidemia, unspecified; R51.9 Headache, unspecified
CPT/HCPCS: 99214

== ENCOUNTER 2024-03-06 10:00 | Outpatient (REF) | payer OTHER, SELFPAY ==
[2024-03-06 11:26] LABS: Estimated Average Glucose 143 mg/dL; Hemoglobin A1c % 6.6 % (<6.0)
[2024-03-06 11:41] LABS: Alanine Aminotransferase 27 U/L (0-31); Albumin Level 4.1 g/dL (3.5-5.0); Alkaline Phosphatase 83 U/L (39-117); Anion Gap 12 (12-20); Aspartate Amino Transferase 22 U/L (5-31); Bilirubin Total 0.3 mg/dL (0.0-1.0); Blood Urea Nitrogen 17 mg/dL (9-16); Calcium 9.9 mg/dL (8.4-10.2); Carbon Dioxide 29 mmol/L (22-29); Chloride 107 mmol/L (96-108); Cholesterol 189 mg/dL (<200); Estimated Glomerular Filt Rate > 60; Glucose Fasting 130 mg/dL (60-99); HDL Cholesterol 60 mg/dL (>40); LDL Cholesterol Calculated 106 mg/dL (<100); Potassium 4.7 mmol/L (3.3-5.1); Sodium 143 mmol/L (135-145); Total Protein 7.3 g/dL (6.5-8.0); Triglycerides 118 mg/dL (<150)
== END 2024-03-06 10:01 | disposition home or self-care (01) ==
LOC: HO.HMGCLDS 10:00
PROVIDERS: PCP Internal Medicine; Visit Provider Internal Medicine
DX: E11.9 Type 2 diabetes mellitus without complications (principal); I10 Essential (primary) hypertension; E78.5 Hyperlipidemia, unspecified; R51.9 Headache, unspecified
CPT/HCPCS: 36415; 80053; 80061; 83036

== ENCOUNTER 2024-03-08 12:45 | Outpatient (AMB) | payer OTHER, SELFPAY ==
--- NOTE | 2024-03-08 12:46 | MHC.PC.OV ---
Vital Signs 03/08/24 12:48 Height 5 ft 2 in Weight 161 lb BMI 29.4 BP 110/74 Blood Pressure Location Lt brachial Position Sitting Pulse 69 Pulse Source Pulse Oximeter Pulse Oximetry (%) 97 Oxygen Delivery Method Room Air Intake Visit Reasons: Follow up Intake Note: Pt is here today for a follow up visit. Allergies pravastatin Adverse Reaction (Intermediate, Verified 03/08/24 12:49) myalgia Medication List - Last Reconciled 03/08/24 by Valerie Lazaro MD acyclovir 5% 1 appl topical 6XD 7 days amlodipine-olmesartan 5-20 mg 1 tab PO DAILY blood-glucose sensor (FreeStyle Vincenzo 3 Sensor device) As directed citalopram 40 mg PO DAILY 90 days coenzyme Q10 60 mg PO DAILY metformin ER 1,500 mg (2 x 750 mg) PO DAILY rosuvastatin (Crestor) 10 mg PO DAILY Tobacco use date assessed: 03/08/24 Dental Screening Dental Screen Date: 03/08/24 Did you have a dental visit in the last 12 months?: Yes Did you have a dental problem in the last 6 months where you did not have access to dental care?: No Was dental information given to patient?: Patient has dentist HPI Follow up HPI Details Pt presents for f/u of DM 2, HTN, hyperlipid, stable on meds. Pt c/o anxiety getting worse since her is in the detox for ETOH abuse. She complains of chronic insomnia and started menopause. Patient denies depression suicidal ideation PFSH Medical History (Updated 03/08/24 @ 13:31 by Valerie Lazaro MD) HTN (hypertension) Right tennis elbow Hyperglycemia Annual physical exam Foot pain Type 2 diabetes mellitus Ovarian cyst Back pain Hyperlipidemia Anxiety Surgical History No pertinent past surgical history Family History Father No problems noted. Mother Non-insulin dependent diabetes mellitus Daughter No problems noted. Brother No problems noted. Brother No problems noted. Brother No problems noted. Brother No problems noted. Social History Housing: House Alcohol intake: never Patient Tobacco Use Status: Never used Tobacco e-Cigarette/Vaping Use: Never Used service: No Current occupational status: employed Cognitive needs: No Hearing needs: No Vision needs: Yes Questionnaire Thrive Questionnaire Date Thrive assessed: 08/06/23 AUDIT C Alcohol Use Questionnaire (AUDIT-C) 1. How often do you have a drink containing alcohol?: Monthly or less 2. How many drinks containing alcohol do you have on a typical day when you are drinking?: 1 or 2 3. How often do you have six or more drinks on one occasion?: Never Total Score: 1 ASUNCION-7 AMB Questionnaire ASUNCION-7 Date ASUNCION - 7 assessed: 08/06/23 Source: Developed by Drs. Kg Ellington, Elisabeth Sandoval, Jg Yan and colleagues, with an educational jacob from [employer]. Review of Systems Const All systems reviewed & are unremarkable except as noted in HPI and below Reports no additional complaints Eyes Reports no additional complaints ENT Reports no additional complaints Card Reports no additional complaints Resp Reports no additional complaints GI Reports no additional complaints Reports no additional complaints Physical exam (Primary Care) Vital Signs: Last Vital Signs Pulse 69 03/08/24 12:48 BP 110/74 03/08/24 12:48 Pulse Ox 97 03/08/24 12:48 Oxygen Delivery Method Room Air 03/08/24 12:48 BMI result Body Mass Index 29.4 Tobacco/Smoking Status: Tobacco use Status Tobacco use date assessed 03/08/24 03/08/24 12:52 Patient Tobacco Use Status Never used Tobacco 03/08/24 12:52 e-Cigarette/Vaping Use Never Used 03/08/24 12:52 Thrive Assessment: Date of Thrive Assessment Date Thrive assessed 08/06/23 03/08/24 12:52 Const General: no acute distress HENMT Head: Yes normal to inspection Ears: hearing grossly normal bilaterally Face and sinus: Yes normal facial exam Mouth: Normal oral and palatal mucosa present Throat: Yes posterior oropharynx normal Eyes General: appearance normal, both eyes and all related structures Neck Neck: Yes no lymphadenopathy and Yes supple Resp Effort & Inspection: normal respiratory effort Auscultation: clear to auscultation bilaterally Cardio Rhythm: regular rhythm Heart sounds: S1 normal heart sound present and S2 normal heart sound present GI Inspection: Yes normal to inspection Palpation (GI): Soft to palpation Percussion: Yes normal to percussion Auscultation: normal bowel sounds Assessment and Plan Assessment & Plan (1) Type 2 diabetes mellitus: Comment: A1C 6.3, Code(s): E11.9 - Type 2 diabetes mellitus without complications Plan: A1C is 6.7, ADA diet, increase exercise, weight loss discussed with the patient she was advised to increase metformin to 2 tablets a day follow-up in 3 months with a fasting labs before (2) HTN (hypertension): Code(s): I10 - Essential (primary) hypertension Plan: Continue current medications (3) Hyperlipidemia: Comment: Intolerant to pravastatin, myalgia Code(s): E78.5 - Hyperlipidemia, unspecified Plan: Continue statin (4) Anxiety: Code(s): F41.9 - Anxiety disorder, unspecified Plan: Stress management sleep hygiene increase physical activity discussed with the patient. She asked for the referral to counseling. Patient will continue citalopram for now Orders: Orders Comprehensive [place]. Panel Fast 3 Months E11.9 - Type 2 diabetes mellitus without complications, E78.5 - Hyperlipidemia, unspecified, I10 - Essential (primary) hypertension Lipid Panel 3 Months E11.9 - Type 2 diabetes mellitus without complications, E78.5 - Hyperlipidemia, unspecified, I10 - Essential (primary) hypertension Microalbumin, Random (w Creat) 3 Months E11.9 - Type 2 diabetes mellitus without complications, E78.5 - Hyperlipidemia, unspecified, I10 - Essential (primary) hypertension Hemoglobin A1c 3 Months E11.9 - Type 2 diabetes mellitus without complications, E78.5 - Hyperlipidemia, unspecified, I10 - Essential (primary) hypertension Complete Blood Count Auto Diff 3 Months E11.9 - Type 2 diabetes mellitus without complications, E78.5 - Hyperlipidemia, unspecified, I10 - Essential (primary) hypertension Referrals Counseling Referral F41.9 - Anxiety disorder, unspecified Coding Level of Care Code Est Pt Level 4 (88902) Diagnoses Type 2 diabetes mellitus E11.9 HTN (hypertension) I10 Hyperlipidemia E78.5 Anxiety F41.9
[2024-03-08 12:48] VITALS: BP 110/74; PULSE 69; O2SAT 97; BMI 29.4
== END 2024-03-08 13:53 | disposition home or self-care (01) ==
PROVIDERS: PCP Internal Medicine; Visit Provider Internal Medicine
DX: E11.9 Type 2 diabetes mellitus without complications (principal); I10 Essential (primary) hypertension; E78.5 Hyperlipidemia, unspecified; F41.9 Anxiety disorder, unspecified
CPT/HCPCS: 99214

== ENCOUNTER 2024-08-30 08:19 | Outpatient (REF) | payer OTHER, SELFPAY ==
--- OUTSIDE RECORDS SUMMARY | 2024-08-30 08:39 | XMS_ITS | Continuity of Care Document ---
Author Organization [facility] Address [address] [address] Phone Care Team Providers Care Licensed Occupational Therapist Name Role Phone Campos OD, FAAO, Peyton Unavailable Unavailable Allergies, Adverse Reactions, Alerts Substance Reaction Status Criticality No Known Allergies Active No Inform ation Procedures Procedure Date REFRACTION COMPREHENSIVE EYE EXAM REFRACTION COMPREHENSIVE EYE EXAM Advance Directives Directive Yes / No Effective Date File Name No Information Encounters Encounter Description Practice Location Reason(s) For Visit Diagnoses Date Provider Providers Copied on Encounter [facility] , [address] [place] [address], [id number] , tel: [phone] Primary Care Near vision blur (chief complaint) Myopia, bilateralOther chorioretinal scars, left eyeDry eye syndrome of bilateral lacrimal glands Mar-2 4 Campos Peyton. [address] [place] [address], [id number] , . tel: [phone] [facility] , [address] [place] [address], [id number] , tel: [phone] Primary Care Distance vision blur (chief complaint) PresbyopiaMeibomian gland dysfnct left eye, upper and lower eyelidsMeibomian gland dysfnct right eye, upper and lower eyelidsOther chorioretinal scars, left eye Mar-3 0 2 [place]. [address] [place] [address], [id number] , . tel: [phone] Family History Family Member Type Diagnosis Age At Onset Father Problem hypertension Mother Problem hypertension Payers Payer name Insurance type Covered libertarian ID Andrea tillman(s) [employer] Medicaid CI [id number] Social History Type Description Quantity Date Captured [...]
--- OUTSIDE RECORDS SUMMARY | 2024-08-30 08:40 | XMS_ITS | Clinical Summary ---
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 Anxiety 08/31/2015 Bilateral thoracic back pain 08/31/2015 GERD (gastroesophageal reflux disease) 6 PCOS (polycystic ovarian syndrome) 04/18/2014 Surgical History Surgery Date Site/Laterality Comments OTHER SURGICAL HISTORY 2007 PROCEDURE: LAPAROSCOPY PROCEDURE NEC; COMMENT: infertility OTHER SURGICAL HISTORY 10/2017 PROCEDURE: HISTORICAL MELANOMA; COMMENT: removal of melanoma on right leg Medical History Medical History Date Comments Bilateral thoracic back pain 08/31/2015 DX: Bilateral thoracic back pain Anxiety 08/31/2015 DX:Anxiety Gastroesophageal reflux dise ase with esophagitis 08/31/2015 DX:Gastroesophageal reflux d isease with esophagitis 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/2016 DX:Recurren t cold sores Depression 02/22/2016 DX:Depression Hyperlipidemia 02/22/2016 DX:Hyperlipidemi a Melanoma (CMS/HCC) DX:Melanoma ( HCC) Prediabetes DX:Prediabetes Essential (primary) hypertension DX:Essential (primary) hypertension Hyperlipidemia DX:Hyperlipidemi a Family History Medical History Relation Name Comments Colon cancer Aunt 1 Breast cancer Aunt 2 DX'D 35 maternal aunt Diabetes Mother Ovarian cancer Neg Hx Relation Name Status Comments Aunt 1 Aunt 2 DX'D 35 Alive Father Alive Mother Alive Social History Tobacco Use Types Packs/Day Years Used Date Smoking Tobacco: Former Smokeless Tobacco: Never Alcohol Use Standard Drinks/Week Comments Yes 0 (1 standard drink = 0.6 oz pur e alcohol) Comments Unknown Sex and Gender Information Value Date Recorded Sex Assigned at Not on file Legal Sex Female 2:32 PM EST Gender Identity Not on file Sexual Orientation Not on file Obstetrics History Last Filed Vital Signs Vital Sign Reading Time Taken Comments Blood Pressure 130/82 02/03/2024 3:38 PM EDT Pulse 78 02/03/2024 3:38 PM EDT Temperature - - Respiratory Rate - - Oxygen Saturation - - Inhaled Oxygen Concentration - - Weight 73.2 kg (161 lb 6.4 oz) 02/03/2024 3:38 P M EDT Height 157.5 cm (5' 2 ) 02/03/2024 3:38 PM EDT Body Mass Index 29.52 02/03/2024 3:38 PM EDT Plan of Treatment Upcoming Encounters Date Type Department Care Team (Late st Contact Info) Description 12/11/2024 10:00 AM EDT Appointment Radiology Department - [address] [phone] 12/24/2024 3:30 PM EDT Office Visit Obstetrics and Gynecology - [address] [phone] Tracie Posadas, [facility] [address] [place] [id number] Health Maintenance Due Date Last Done Comments COVID-19 Vaccine (#1) 1978 DTaP,Tdap,and Td Vaccines (1 - Tdap) 1992 Hepatitis B Vaccines (1 of 3 - 19+ 3-dose series) 1992 Cholesterol Screening (Lipid Panel) 06/22/2022 08/31/2015 Colorectal Cancer Screening: Colonoscopy 06/22/2022 Depression Screening 06/22/2022 HIV Screening 06/22/2022 Hepatitis C Screening 06/22/2022 Social Influencers of Health Screening 06/22/2022 Pneumococcal Vaccine: 50+ Years (1 of 1 - PCV) 12/18/2023 Zoster Vaccines (1 of 2) 12/18/2023 Influenza Vaccine (#1) 2024 Cervical Cancer Screening: HPV 05/04/2025 05/04/2020 Breast Cancer Screening 07/05/2025 07/05/20 23, 06/29/2022, 06/23/2021, Additional history exists HIB Vaccines Aged Out No longer eligi ble based on patient's age to complete this topic HPV Vaccines Aged Out No longer eligi ble based on patient's age to complete this topic Hepatitis A Vaccines Aged Out No long er eligible based on patient's age to complete this topic IPV Vaccines Aged Out No longer eligi ble based on patient's age to complete this topic MMR Vaccines Aged Out No longer eligi ble based on patient's age to complete this topic Meningococcal ACWY Vaccine Aged Out N o longer eligible based on patient's age to complete this topic Meningococcal B Vacine Aged Out No lo nger eligible based on patient's age to complete this topic Pneumococcal Vaccine: Pediatrics (0 to 5 Years) and At-Risk Patients (6 to 64 Years) Aged Out No longer eligible based on patient's age to complete this topic RSV Immunization Patients Under 20 months Aged Out No longer eligible based on patient's age to complete this topic Varicella Vaccines Aged Out No longer eligible based on patient's age to complete this topic Procedures Procedure Name Priority Date/Time Associated Diagnosis Comments SCREENING MAMMOGRAPHY BI 2-VIEW BREAST INC CAD Routine 07/05/2023 11:03 AM EST Encounter for screening mammogram for malignant neoplasm of breast HM HPV Routine 05/04/2020 LIPID PANEL Routine 08/31/2015 from Last 3 Months or Most Recently Relevant to Health Maintenance Results * SCREENING MAMMOGRAPHY BI 2-VIEW BREAST INC CAD (07/05/2023 11:03 AM EST) Anatomical Region Laterality Modality Radiographic Edwina ging 06/29/2022 12:3 2 PM EST Narrative 07/05/2023 2:00 PM EST This is a summary report. The complete report is available in the patient's medical record. If you cannot access the medical record, please contact the sending organization for a detailed fax or copy. Study: SCREENING MAMMOGRAPHY BI 2-VIEW BREAST INC CAD Technique: Bilateral full-field digital screening mammography is obtained and read in conjunction with computer aided detection. ??Tomosynthesis as well as 2D C-View imaging were obtained. Comparison: Comparison made to multiple prior, most recent June 29, 2022, and most remote August 27, 2014. Breast composition: There are scattered areas of fibroglandular density. Bilateral breasts: No significant masses, suspicious calcifications or other abnormalities are seen in either breast. IMPRESSION: Impression: Bilateral breasts: Negative, no specific mammographic evidence of malignancy. ??Normal interval follow-up is recommended in 12 months. BI-RADS: Category 1: Negative Procedure Note Carlene Espinoza MD - 08/19/2023 This is a summary report. The complete report is available in thepatient's medical record. If you cannot access the medical record, pleasecontact the sending organization for a detailed fax or copy. Study: SCREENING MAMMOGRAPHY BI 2-VIEW BREAST INC CAD Technique: Bilateral full-field digital screening mammography is obtainedand read in conjunction with computer aided detection. Tomosynthesis aswell as 2D C-View imaging were obtained. Comparison: Comparison made to multiple prior, most recent June, and most remote August 27, 2014. Breast composition: There are scattered areas of fibroglandular density. Bilateral breasts: No significant masses, suspicious calcifications orother abnormalities are seen in either breast. IMPRESSION: Impression: Bilateral breasts: Negative, no specific mammographic evidence ofmalignancy. Normal interval follow-up is recommended in 12 months. BI-RADS: Category 1: Negative Staci Turner DO IMG XR PROCEDURES Final Resul t * Cervical Cancer Screening: HPV (05/04/2020) Pathologist [facility] Cervical Cancer Screening: HPV negative,a bstracted Historical Provider HEALTH MAINTENANCE Final Result * (ABNORMAL) Lipid panel (08/31/2015) Pathologist [facility] LDL/HDL Ratio 5(A) 0 - 4 Triglycerides 404(A) 0 - 150 mg/dL Cholesterol 271(A) 0 - 200 mg/dL HDL 51 >=40 mg/dL LDL Cholesterol 140(A) 0 - 100 mg/dL Blood Venous blood specimen / Unknown us Historical Provider LAB BLOOD ORDERABLES Cherie l Result from Last 3 Months or Most Recently Relevant to Health Maintenance Insurance [facility] Care Teams Brim Setter Relationship Specialty Start Date End Date Valerie Lazaro MD [address] [place] [id number] PCP - General 02/03/24
[2024-08-30 11:04] LABS: Influenza A PCR NEGATIVE (Negative); Influenza B PCR NEGATIVE (Negative); Resp Syncy Virus RNA Qual PCR NEGATIVE (Negative); SARS COV2 PCR INHOUSE NEGATIVE (Negative)
== END 2024-08-30 08:20 | disposition home or self-care (01) ==
LOC: HO.LAB 08:19
PROVIDERS: Nurse Practitioner Family; PCP Internal Medicine
DX: J06.9 Acute upper respiratory infection, unspecified (principal)
CPT/HCPCS: 0241U; 87880; 99212

== ENCOUNTER 2024-08-30 08:19 | Outpatient (AMB) | payer OTHER, SELFPAY ==
[2024-08-30 08:23] VITALS: BP 130/98; PULSE 76; TEMP 37.1; O2SAT 95
--- NOTE | 2024-08-30 08:23 | AM.OFFWIN_ITS ---
Intake Vital Signs 08/30/24 08:23 Weight 166 lb BP 130/98 H Blood Pressure Location Lt brachial Position Sitting Pulse 76 Pulse Source Pulse Oximeter Temp 98.7 F Temp Source Oral Pulse Oximetry (%) 95 Oxygen Delivery Method Room Air Intake Visit Reasons: EP Sore throat Intake Note: Patient here for sore throat and headaches which has been present for about 1 week. Patient Tobacco Use Status: Never used Tobacco Allergies pravastatin Adverse Reaction (Intermediate, Verified 08/30/24 08:26) myalgia Do you need a note to return to daycare/school/sports/work: No HPI HPI Comments History of Present Illness Details 48 y/o female patient who presents to [facility] walk in clinic with c/o Sore- throat and headaches for 1 week. [facility] Medical History (Updated 08/30/24 @ 08:28 by Maritza Kruger NP) Acute respiratory disease HTN (hypertension) Right tennis elbow Hyperglycemia Annual physical exam Foot pain Type 2 diabetes mellitus Ovarian cyst Back pain Hyperlipidemia Anxiety Surgical History No pertinent past surgical history Family History Father No problems noted. Mother Non-insulin dependent diabetes mellitus Daughter No problems noted. Brother No problems noted. Brother No problems noted. Brother No problems noted. Brother No problems noted. Social History Housing: House Alcohol intake: never Patient Tobacco Use Status: Never used Tobacco e-Cigarette/Vaping Use: Never Used service: No Current occupational status: employed Cognitive needs: No Hearing needs: No Vision needs: Yes Review of Systems Const All systems reviewed & are unremarkable except as noted in HPI and below Physical Exam Vital Signs: Last Vital Signs Temp 98.7 F 08/30/24 08:23 Pulse 76 08/30/24 08:23 BP 130/98 H 08/30/24 08:23 Pulse Ox 95 08/30/24 08:23 Oxygen Delivery Method Room Air 08/30/24 08:23 Const General: cooperative and no acute distress Nutritional Appearance: overweight Orientation/consciousness: patient oriented x3 HEENT Head: Yes normocephalic Ears: external ears normal and TM abnormal with fluid behind the TM bilateral General nose exam: Normal external nose present Face and sinus: Yes sinuses nontender Mouth: moist mucous membranes Throat: Yes uvula midline Resp Effort & Inspection: normal respiratory effort and able to speak in complete sentences Auscultation: clear to auscultation bilaterally, no crackles, no rales, no rhonchi and no wheezes Cardio Heart sounds: S1 normal heart sound present and S2 normal heart sound present Neuro General: patient oriented x3 Assessment & Plan Assessment & Plan (1) Acute respiratory disease: Code(s): J06.9 - Acute upper respiratory infection, unspecified Plan: Orderd SARs OTC Cold/Flu remedies Acetaminophen for pain relief. Orders: Orders SARS-CoV2/FLU/RSV Today J06.9 - Acute upper respiratory infection, unspecified Coding Level of Care Code Est Pt Level 4 (90363) Diagnoses Acute respiratory disease J06.9 Time Spent (min) 20
== END 2024-08-30 08:41 | disposition home or self-care (01) ==
PROVIDERS: PCP Internal Medicine; Visit Provider Nurse Practitioner Family
DX: J06.9 Acute upper respiratory infection, unspecified (principal); Z13.9 Encounter for screening, unspecified

== ENCOUNTER 2024-12-23 07:34 | Outpatient (REF) | payer OTHER, SELFPAY ==
--- OUTSIDE RECORDS SUMMARY | 2024-12-23 07:37 | XMS_ITS | Continuity of Care Document ---
Author Organization [facility] Address [address] [phone] Phone Care Team Providers Care Data Analysis Assistant Name Role Phone Campos OD, FAAO, Peyton Unavailable Unavailable Allergies, Adverse Reactions, Alerts Substance Reaction Status Criticality No Known Allergies Active No Inform ation Procedures Procedure Date REFRACTION COMPREHENSIVE EYE EXAM REFRACTION COMPREHENSIVE EYE EXAM Advance Directives Directive Yes / No Effective Date File Name No Information Encounters Encounter Description Practice Location Reason(s) For Visit Diagnoses Date Provider Providers Copied on Encounter [facility] , [address] [place] [address], [id number] , tel: [phone] Primary Care Near vision blur (chief complaint) Myopia, bilateralOther chorioretinal scars, left eyeDry eye syndrome of bilateral lacrimal glands Mar-2 4 Campos Peyton. [address] [place] [address], [id number] , . tel: [phone] [facility] , [address] [place] [address], [id number] , tel: [phone] Primary Care Distance vision blur (chief complaint) PresbyopiaMeibomian gland dysfnct left eye, upper and lower eyelidsMeibomian gland dysfnct right eye, upper and lower eyelidsOther chorioretinal scars, left eye Mar-3 0 2 [place]. [address] [place] [address], [id number] , . tel: [phone] Family History Family Member Type Diagnosis Age At Onset Father Problem hypertension Mother Problem hypertension Payers Payer name Insurance type Covered green party ID Andrea tillman(s) [employer] Medicaid CI [id number] Social History Type Description Quantity Date Captured [...]
[2024-12-23 10:06] LABS: MANUAL DIFF FLAG NO
[2024-12-23 10:14] LABS: Basophils Absolute Auto 0.1 X10*3/uL (0.0-0.2); Basophils Percent Auto 0.9 % (0-2); Eosinophils Absolute Auto 0.2 X10*3/uL (0.0-0.4); Eosinophils Percent Auto 3.2 % (0-4); Hematocrit 39.7 % (37.0-47.0); Hemoglobin 12.8 g/dl (12.0-16.0); Imm Gran Abs Auto 0.03 X10*3/uL (0.00-0.03); Imm Gran Pct Auto 0.5 % (0.0-0.4); Lymphocytes Absolute Auto 1.4 X10*3/uL (1.2-4.9); Lymphocytes Percent Auto 25.4 % (20-40); Mean Corpuscular HGB Conc 32.2 g/dl (31.0-35.0); Mean Corpuscular Hemoglobin 28.8 pg (27.0-33.0); Mean Corpuscular Volume 89.2 fL (80.0-98.0); Mean Platelet Volume 9.4 fL (9.4-12.3); Monocytes Absolute Auto 0.4 X10*3/uL (0.1-1.2); Monocytes Percent Auto 7.3 % (2-11); Neutrophils Absolute Auto 3.5 x10*3/uL (2.0-8.3); Neutrophils Percent Auto 62.7 % (45-73); Platelet Count 360 X10*3/uL (160-400); Red Blood Count 4.45 X10*6/uL (4.20-5.50); Red Cell Distribution Width 11.8 % (11.0-16.0); White Blood Count 5.6 X10*3/uL (4.8-10.8)
[2024-12-23 10:23] LABS: Estimated Average Glucose 151 mg/dL; Hemoglobin A1c % 6.9 % (<6.0)
[2024-12-23 10:25] LABS: Anion Gap 11 (12-20)
[2024-12-23 10:40] LABS: Alanine Aminotransferase 37 U/L (0-31); Albumin Level 4.2 g/dL (3.5-5.0); Alkaline Phosphatase 75 U/L (39-117); Aspartate Amino Transferase 32 U/L (5-31); Bilirubin Total 0.3 mg/dL (0.0-1.0); Blood Urea Nitrogen 20 mg/dL (9-16); Calcium 9.3 mg/dL (8.4-10.2); Carbon Dioxide 29 mmol/L (22-29); Chloride 105 mmol/L (96-108); Cholesterol 192 mg/dL (<200); Estimated Glomerular Filt Rate > 60; Glucose Fasting 166 mg/dL (60-99); HDL Cholesterol 56 mg/dL (>40); LDL Cholesterol Calculated 101 mg/dL (<100); Potassium 4.5 mmol/L (3.3-5.1); Sodium 140 mmol/L (135-145); Total Protein 7.3 g/dL (6.5-8.0); Triglycerides 175 mg/dL (<150)
[2024-12-23 10:52] LABS: Creatinine Urine 98.97 mg/dL
== END 2024-12-23 07:35 | disposition home or self-care (01) ==
LOC: HO.HMGCLDS 07:34
PROVIDERS: PCP Internal Medicine; Visit Provider Internal Medicine
DX: E11.9 Type 2 diabetes mellitus without complications (principal); E78.5 Hyperlipidemia, unspecified; I10 Essential (primary) hypertension
CPT/HCPCS: 36415; 80053; 80061; 82043; 82570; 83036; 85025

== ENCOUNTER 2025-01-06 08:26 | Outpatient (AMB) | payer OTHER, SELFPAY ==
[2025-01-06 08:30] VITALS: BP 122/80; PULSE 93; RESP 18; TEMP 36.8; O2SAT 97; BMI 28.2
--- NOTE | 2025-01-06 08:30 | A.OFFPC_ITS ---
Vital Signs 01/06/25 08:30 Height 5 ft 2 in Weight 154 lb BMI 28.2 BP 122/80 Blood Pressure Location Lt brachial Position Sitting Respiration 18 Pulse 93 Pulse Source Pulse Oximeter Temp 98.3 F Temp Source Oral Pulse Oximetry (%) 97 Oxygen Delivery Method Room Air Intake Visit Reasons: PE Intake Note: Pt is here today for PE. Allergies pravastatin Adverse Reaction (Intermediate, Verified 01/06/25 08:30) myalgia Medication List - Last Reconciled 01/06/25 by Valerie Lazaro MD acyclovir 5% 1 appl topical 6XD 7 days amlodipine-olmesartan 5-20 mg 1 tab PO DAILY blood sugar diagnostic ([employer] Financial PartnersTouch Ultra Test strips) 1 qd blood-glucose sensor (AlertMeStyle Vincenzo 3 Sensor device) As directed citalopram 40 mg PO DAILY 90 days metformin ER 1,500 mg (2 x 750 mg) PO DAILY Mounjaro (tirzepatide) 2.5 mg (0.5 mL) subcut QWEEK NS phentermine 15 mg PO DAILY rosuvastatin 10 mg PO DAILY Tobacco use date assessed: 01/06/25 Dental Screening Dental Screen Date: 01/06/25 Did you have a dental visit in the last 12 months?: Yes Did you have a dental problem in the last 6 months where you did not have access to dental care?: No Was dental information given to patient?: Patient has dentist HPI PE HPI Details Patient presents for a physical. She has started phentermine by weight management program at [facility] 3 months ago and lost 10 lb. She could not tolerate more than 1 tablet of metformin a day because of hair loss. Patient has been following ADA diet starting to increase physical activity decreasing caloric intake for over 6 months. [facility] Medical History (Updated 01/06/25 @ 09:22 by Valerie Lazaro MD) HTN (hypertension) Right tennis elbow Annual physical exam Foot pain Type 2 diabetes mellitus Ovarian cyst Back pain Hyperlipidemia Anxiety Surgical History No pertinent past surgical history Family History Father No problems noted. Mother Non-insulin dependent diabetes mellitus Daughter No problems noted. Brother No problems noted. Brother No problems noted. Brother No problems noted. Brother No problems noted. Social History Housing: House Alcohol intake: never Patient Tobacco Use Status: Never used Tobacco e-Cigarette/Vaping Use: Currently Using service: No Current occupational status: employed Cognitive needs: No Hearing needs: No Vision needs: Yes Questionnaire PHQ-9 Over the last 2 weeks, how often have you been bothered by any of the following problems? 1. Little interest or pleasure in doing things: not at all 2. Feeling down, depressed, or hopeless: not at all 3. Trouble falling or staying asleep, or sleeping too much: not at all 4. Feeling tired or having little energy: several days 5. Poor appetite or overeating: not at all 6. Feeling bad about yourself - or that you are a failure or have let yourself or your family down: not at all 7. Trouble concentrating on things, such as reading the newspaper or watching television: not at all 8. Moving or speaking so slowly that other people could have noticed. Or the opposite - being so fidgety or restless that you have been moving around a lot more than usual: not at all 9. Thoughts that you would be better off or of hurting yourself in some way: not at all Total score: 1 Depression Screening Interpretation: Negative Depression Screening Done: Yes 45894 - PHQ-9 Billing: Yes Source: Developed by Drs. Kg Ellington, Elisabeth Sandoval, Jg Yan and colleagues, with an educational jacob from [employer]. Thrive Questionnaire Date Thrive assessed: 01/06/25 I am a: Patient What is your living situation today?: I have a steady place to live Within the past 12 months, did the food you bought not last and you didn't have the money to get more?: Never true Within the past 12 months, did you worry whether your food would run out before you got money to buy more?: Never true Do you have trouble paying for medicines?: No Do you have trouble getting transportation to medical appointments?: No Do you have trouble paying your heating and electricity bill?: No Do you have trouble taking care of your child, family member or friend?: No Do you have trouble with day-to-day activities such as bathing, preparing meals, shopping, managing finances, etc.?: No Are you currently unemployed and looking for a job?: No Are you interested in more education?: No Please select the resources that you would like help with: None Currently or been in a relationship where the following occur: No concerns reported THRIVE Score: 0 AUDIT C Alcohol Use Questionnaire (AUDIT-C) 1. How often do you have a drink containing alcohol?: 2-4 times a month 2. How many drinks containing alcohol do you have on a typical day when you are drinking?: 1 or 2 3. How often do you have six or more drinks on one occasion?: Never Total Score: 2 ASUNCION-7 AMB Questionnaire ASUNCION-7 Date ASUNCION - 7 assessed: 01/06/25 Feeling nervous, anxious, or on edge: 0 = Not at all Not being able to stop or control worryin = Not at all Worrying too much about different things: 0 = Not at all Trouble relaxin = Not at all Being so restless that it is hard to sit still: 0 = Not at all Becoming easily annoyed or irritable: 0 = Not at all Feeling afraid as if something awful might happen: 0 = Not at all Total ASUNCION-7 score (0-4 normal; 5-9 mild; 10-14 moderate; 15-21 severe): 0 Source: Developed by Drs. Kg Ellington, Elisabeth Sandoval, Jg Yan and colleagues, with an educational jacob from [employer]. ASUNCION-7 Assessment Billing ASUNCION-7 Assessment Tool: ASUNCION-7 Assessment 28132 Review of Systems Const All systems reviewed & are unremarkable except as noted in HPI and below Reports no additional complaints Eyes Reports no additional complaints ENT Reports no additional complaints Card Reports no additional complaints Resp Reports no additional complaints GI Reports no additional complaints Reports no additional complaints Musc Reports no additional complaints Physical exam (Primary Care) Vital Signs: Last Vital Signs Temp 98.3 F 01/06/25 08:30 Pulse 93 01/06/25 08:30 Resp 18 01/06/25 08:30 BP 122/80 01/06/25 08:30 Pulse Ox 97 01/06/25 08:30 Oxygen Delivery Method Room Air 01/06/25 08:30 BMI result Body Mass Index 28.2 Tobacco/Smoking Status: Tobacco use Status Tobacco use date assessed 01/06/25 01/06/25 08:35 Patient Tobacco Use Status Never used Tobacco 01/06/25 08:35 e-Cigarette/Vaping Use Currently Using 01/06/25 08:35 PHQ-9: PHQ-9 Score PHQ-9: Total score 1 01/06/25 08:35 Depression Screening Interpretation: Negative Thrive Assessment: Date of Thrive Assessment Date Thrive assessed 01/06/25 01/06/25 08:35 Currently or been in a relationship where the following occur: No concerns reported Const General: no acute distress HENMT Head: Yes normal to inspection Ears: hearing grossly normal bilaterally Face and sinus: Yes normal facial exam Mouth: Normal oral and palatal mucosa present Throat: Yes posterior oropharynx normal Eyes General: appearance normal, both eyes and all related structures Neck Neck: Yes no lymphadenopathy and Yes supple Resp Effort & Inspection: normal respiratory effort Auscultation: clear to auscultation bilaterally Cardio Rhythm: regular rhythm Heart sounds: S1 normal heart sound present and S2 normal heart sound present GI Inspection: Yes normal to inspection Palpation (GI): Soft to palpation Percussion: Yes normal to percussion Auscultation: normal bowel sounds Extrem Other: Diabetic foot exam skin is intact monofilament and vibration sensation intact bilat General: Yes no clubbing, cyanosis or edema Coding Level of Care Code Est Pt Prev Care 40-64y(16372) Diagnoses Hyperlipidemia E78.5 Type 2 diabetes mellitus E11.9 HTN (hypertension) I10 Annual physical exam Z00.00 Additional Codes ASUNCION-7 Assessment Billing - ASUNCION-7 Assessment Tool: ASUNCION-7 Assessment 59912 ([id number]) PHQ-9 - 95146 - PHQ-9 Billing: Yes ([id number]) Assessment & Plan Assessment & Plan (1) Hyperlipidemia: Comment: Intolerant to pravastatin, myalgia Code(s): E78.5 - Hyperlipidemia, unspecified Category: Medical Plan: Continue Crestor (2) Type 2 diabetes mellitus: Code(s): E11.9 - Type 2 diabetes mellitus without complications Category: Medical Plan: A1c is 6.9, ADA diet increase exercise discussed with the patient. Mounjaro 2.5 mg weekly will be added to metformin. Patient was advised to monitor her fasting blood glucose and the record the readings and follow-up after 1 month of starting Mounjaro (3) HTN (hypertension): Code(s): I10 - Essential (primary) hypertension Category: Medical Plan: Continue current medications (4) Annual physical exam: Comment: Pap and mammogram by education adviser Code(s): Z00.00 - Encounter for general adult medical examination without abnormal findings Category: Medical Plan: Well-balanced diet regular for 80 discussed with the patient. She will discuss continuing phentermine with weight management program at [facility] when patient starts taking Mounjaro Orders: Orders Comprehensive [place]. Panel Fast 3 Months E11.9 - Type 2 diabetes mellitus without complications, E78.5 - Hyperlipidemia, unspecified, I10 - Essential (primary) hypertension Lipid Panel 3 Months E11.9 - Type 2 diabetes mellitus without complications, E78.5 - Hyperlipidemia, unspecified, I10 - Essential (primary) hypertension Microalbumin, Random (w Creat) 3 Months E11.9 - Type 2 diabetes mellitus without complications, E78.5 - Hyperlipidemia, unspecified, I10 - Essential (primary) hypertension Hemoglobin A1c 3 Months E11.9 - Type 2 diabetes mellitus without complications, E78.5 - Hyperlipidemia, unspecified, I10 - Essential (primary) hypertension Complete Blood Count Auto Diff 3 Months E11.9 - Type 2 diabetes mellitus without complications, E78.5 - Hyperlipidemia, unspecified, I10 - Essential ( primary) hypertension Medications: New blood sugar diagnostic ([employer] PartnersTouch Ultra Test strips) 1 qd 100 ea 3RF Mounjaro (tirzepatide) 2.5 mg (0.5 mL) subcut QWEEK 2 mL 0RF NS Refilled rosuvastatin 10 mg PO DAILY 90 tabs 3RF
--- OUTSIDE RECORDS SUMMARY | 2025-01-06 08:47 | XMS_ITS | Encounter Summary ---
Author Organization [facility] Address [address] [place] [address] Care Team Providers Care Senior Internet Sales Consultant Name Role Phone Valerie Lazaro MD Primary Care Provider [phone] Reason for Visit * Reason Onset Date Comments Med Refill 12/20/2024 Phentermine 15 M G Encounter Details Date Type Department Care Team ([facility] Contact Info) Description 12/20/2024 Telephone Bariatric Surgery [facility] [address] [address] Tanja Pate MD [address] [id number] Med Refill (Phentermine 15 MG) Social History Tobacco Use Types Packs/Day Years Used Date Smoking Tobacco: Former Smokeless Tobacco: Never Alcohol Use Standard Drinks/Week Comments Yes 0 (1 standard drink = 0.6 oz pur e alcohol) Comments No Sex and Gender Information Value Date Recorded Sex Assigned at Not on file Legal Sex Female 2:32 PM EST Gender Identity Not on file Sexual Orientation Not on file documented as of this encounter Progress Notes * Regina Olivarez - 12/20/2024 10:14 AM EDT Patient requesting refill on Phentermine 15 MG documented in this encounter Plan of Treatment Upcoming Encounters Date Type Department Care Team ([facility] Contact Info) Description 01/27/2025 8:00 AM EDT Office Visit Bariatric Surgery [facility] [address] [phone] Tanja Pate MD 175 [facility] [address] [place] [address] 01/27/2025 3:00 PM EDT Office Visit Obstetrics and Gynecology - [place] [address] [place] [phone] Tracie Posadas, [facility] [address] [place] [address] documented as of this encounter Visit Diagnoses Not on filedocumented in this encounter Care Teams Senior Internet Sales Consultant Relationship Specialty Start Date End Date Valerie Lazaro MD [address] [place] [address] PCP - General 02/03/24 documented as of this encounter
== END 2025-01-06 09:21 | disposition home or self-care (01) ==
LOC: HO.HMCC 08:27
PROVIDERS: PCP Internal Medicine; Visit Provider Internal Medicine
DX: E78.5 Hyperlipidemia, unspecified (principal); E11.9 Type 2 diabetes mellitus without complications; I10 Essential (primary) hypertension; Z00.00 Encounter for general adult medical examination without abnormal findings

== ENCOUNTER → 2025-01-06 08:26 | Outpatient (BNVA) | payer OTHER, SELFPAY | PROVIDERS: PCP Internal Medicine; Visit Provider Internal Medicine | DX: Z00.00 Encounter for general adult medical examination without abnormal findings (principal); E78.5 Hyperlipidemia, unspecified; E11.9 Type 2 diabetes mellitus without complications; I10 Essential (primary) hypertension | CPT/HCPCS: 96127; 99396 ==

== ENCOUNTER 2025-05-07 09:51 | Outpatient (REF) | payer OTHER, SELFPAY ==
--- OUTSIDE RECORDS SUMMARY | 2023-10-10 09:45 | XMS_ITS | Continuity of Care Document ---
Author Organization [facility] Address [address] [address] Phone Care Team Providers Care Caser In Name Role Phone Campos OD, FAAO, Peyton Unavailable Unavailable Allergies, Adverse Reactions, Alerts Substance Reaction Status Criticality No Known Allergies Active No Inform ation Procedures Procedure Date REFRACTION COMPREHENSIVE EYE EXAM REFRACTION COMPREHENSIVE EYE EXAM Advance Directives Directive Yes / No Effective Date File Name No Information Encounters Encounter Description Practice Location Reason(s) For Visit Diagnoses Date Provider Providers Copied on Encounter [facility] , [address] [place] [address], [id number] , tel: [phone] Primary Care Near vision blur (chief complaint) Myopia, bilateralOther chorioretinal scars, left eyeDry eye syndrome of bilateral lacrimal glands Mar-2 4 Campos Peyton. [address] [place] [address], [id number] , . tel: [phone] [facility] , [address] [place] [address], [id number] , tel: [phone] Primary Care Distance vision blur (chief complaint) PresbyopiaMeibomian gland dysfnct left eye, upper and lower eyelidsMeibomian gland dysfnct right eye, upper and lower eyelidsOther chorioretinal scars, left eye Mar-3 0 2 [place]. [address] [place] [address], [id number] , . tel: [phone] Family History Family Member Type Diagnosis Age At Onset Father Problem hypertension Mother Problem hypertension Payers Payer name Insurance type Covered republican ID Andrea tillman(s) [employer] Medicaid CI [id number] Social History Type Description Quantity Date Captured [...]
--- OUTSIDE RECORDS SUMMARY | 2025-05-07 09:54 | XMS_ITS | Clinical Summary ---
Author Organization [facility] [address] [place] [address] [place] [phone] Phone Care Team Providers Care Grave Cleaner Name Role Phone Valerie Lazaro MD Primary Care Provider [phone] Allergies No known active allergies Medications amLODIPine-olme sartan (TADEO) 5-20 mg per tablet Take 1 tablet by mouth 1 (one) time each day. 5 Active citalopram (CeleXA) 40 mg tablet Take 1 tablet (40 mg total) by mouth 1 (one) time each day. 5 Active metFORMIN XR (GLUCOPHAGE-XR) 750 mg 24 hr tablet Take 2 tablets (1,500 mg total) by mouth 1 (one) time each day. 5 Active rosuvastatin (CRESTOR) 10 mg tablet Take 1 tablet (10 mg total) by mouth 1 (one) time each day. 5 Active phentermine 37.5 mg capsuleIndicati ons:Over weight Take 1 capsule (37.5 mg total) by mouth 1 (one) time each day before breakfast. Max Daily Amount: 37.5 mg 30 each 2 5 08/04/19 26 Active phentermine 37.5 mg capsule Take 1 capsule (37.5 mg total) by mouth 1 (one) time each day before breakfast. 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 Anxiety 08/31/2015 Bilateral thoracic back pain 08/31/2015 GERD (gastroesophageal reflux disease) 6 PCOS (polycystic ovarian syndrome) 04/18/2014 Encounters Date Type Department Care Team Description 04/29/2025 Telephone Bariatric Surgery [address] [place] [address] Tanja Pate MD from Last 3 Months Surgical History Surgery Date Site/Laterality Comments OTHER [...] 02/22/2016 DX:Depression Hyperlipidemia 02/22/2016 DX:Hyperlipidemi a Melanoma ([facility]CC V24, [facility] V28) DX:Melanoma ([facility]) Prediabetes DX:Prediabetes Essential (primary) hypertension DX:Essential (primary) [...] Sexual Orientation Not on file Obstetrics History Para Term AB IAB SAB Ectopic Multiple Livin g Live Births 1 1 1 1 Date Outcome GA Total Labor Labor/2nd/3rd Weight Sex Type Anes PTL Susannah A1 A5 Name Clin Term Last Filed Vital Signs Vital Sign Reading Time Taken Comments Blood Pressure 123/72 01/27/2025 8:08 AM EDT Pulse 83 01/27/2025 8:08 AM EDT Temperature 36.6 C (97.8 F) 01/27/2025 8:08 AM EDT Respiratory Rate - - Oxygen Saturation - - Inhaled Oxygen Concentration - - Weight 68.5 kg (151 lb) 01/27/2025 8:08 AM EDT Height 157.5 cm (5' 2 ) 01/27/2025 8:08 AM EDT Body Mass Index 27.62 01/27/2025 8:08 AM EDT Plan of Treatment Upcoming Encounters Date Type Department Care Team (Late st Contact Info) Description 06/30/2025 8:30 AM EST Office Visit Bariatric Surgery - [address] [place] [address] Tanja Pate MD [address] [place] [phone] Health Maintenance Due Date Last Done Comments Colorectal Cancer Screening: Colonoscopy 1973 Hepatitis B Vaccines (1 of 3 - 19+ 3-dose series) 1992 Zoster Vaccines (1 of 2) 1992 Cholesterol Screening (Lipid Panel) 06/22/2022 08/31/2015 HIV Screening 06/22/2022 Hepatitis C Screening 06/22/2022 Social Influencers of Health Screening 06/22/2022 Pneumococcal Vaccine: 50+ Years (1 of 1 - PCV) 12/18/2023 Depression Screening 07/14/2024 COVID-19 Vaccine ( - season) 2025 07/21/2021, 12/07/2020, 11/16/2020 Influenza Vaccine (#1) 2025 Cervical Cancer Screening: HPV 05/04/2025 05/04/2020 Breast Cancer Screening 12/11/2026 12/12/19 25, 07/05/2023, 06/29/2022, Additional history exists DTaP,Tdap,and Td Vaccines (2 - Td or Tdap) 11/08/2027 11/07/2017 RSV Immunization Adult Patients (1 - 1-dose 75+ series) 2048 HIB Vaccines Aged Out No longer eligi [...] age to complete this topic Meningococcal B Vaccine Aged Out No l onger eligible based on patient's age to complete this topic RSV Immunization Patients Under 20 months Aged Out No longer eligible based on patient's age to complete this topic Varicella Vaccines Aged Out No longer eligible based on patient's age to complete this topic Procedures Procedure Name Priority Date/Time Associated Diagnosis Comments MG MAMMO DIGITAL SCREENING W CESAR BILAT Routine 12/11/2024 10:00 AM EDT Encounter for screening mammogram for breast cancer HM HPV Routine 05/04/2020 LIPID PANEL Routine 08/31/2015 from Last 3 Months or Most Recently Relevant to Health Maintenance Results * MG Mammo Digital Screening w Cesar bilat (12/11/2024 10:00 AM EDT) Anatomical Region Laterality Modality Breast Bilateral Mammography 12/13/2024 10:4 4 AM EDT Impressions 12/13/2024 10:47 AM EDT Benign. BI-RADS CATEGORY: 1 - NEGATIVE RECOMMENDATION: Screening bilateral mammogram is recommended in 1 year. Mammo Location: [facility], [address] [place] [address], [id number], . -------- FINAL REPORT -------- Dictated By: Luana Xie Dictated Date: 12/13/2024 10:44 ET Assigned Physician: Luana Xie Reviewed and Electronically Signed By: Luana Xie Signed Date: 12/13/2024 10:47 ET Workstation ID: [id number] Transcribed By: Self Edit Transcribed Date: 12/13/2024 10:44 ET Narrative 12/13/2024 10:47 AM EDT CLINICAL: 48 years old, Female, routine annual exam. COMPARISON: Mammograms dating back to 04/25/2020 with most recent of 07/05/2023. TECHNIQUE: Bilateral MLO and CC views were obtained digitally with 3-D mammogram (digital breast tomosynthesis). Computer-aided detection was utilized in evaluation of this exam (CAD). FINDINGS: There is no evidence of suspicious mass or architectural distortion. No worrisome calcifications are evident. There has been no significant change from prior exam(s). BREAST DENSITY: B - There are scattered areas of fibroglandular density. Procedure Note Luana Xie MD - 12/13/2024 CLINICAL: 48 years old, Female, routine annual exam. COMPARISON: Mammograms dating back to 04/25/2020 with most recent of07/05/2023. TECHNIQUE: Bilateral MLO and CC views were obtained digitally with 3-Dmammogram (digital breast tomosynthesis). Computer-aided detection wasutilized in evaluation of this exam (CAD). FINDINGS: There is no evidence of suspicious mass or architectural distortion. Noworrisome calcifications are evident. There has been no significantchange from prior exam(s). BREAST DENSITY: B - There are scattered areas of fibroglandular density. IMPRESSION: Benign. BI-RADS CATEGORY: 1 - NEGATIVE RECOMMENDATION: Screening bilateral mammogram is recommended in 1 year. Mammo Location: [facility], [address] [place] [address], [facility], . -------- FINAL REPORT -------- Dictated By: Luana Xie Dictated Date: 12/13/2024 10:44 ET Assigned Physician: Luana Xie Reviewed and Electronically Signed By: Luana Xie Signed Date: 12/13/2024 10:47 ET Workstation ID: [id number] Transcribed By: Self Edit Transcribed Date: 12/13/2024 10:44 ET us Gelacio Hoffman MD IMG BI PROCEDURES Final Resu lt * Cervical Cancer Screening: HPV (05/04/2020) [facility]ologist [facility] Cervical Cancer Screening: HPV negative,a bstracted Historical Provider HEALTH MAINTENANCE Final Result * (ABNORMAL) Lipid panel (08/31/2015) [facility] LDL/HDL Ratio 5(A) 0 - 4 Triglycerides 404(A) 0 - 150 mg/dL Cholesterol 271(A) 0 - 200 mg/dL HDL 51 >=40 mg/dL LDL Cholesterol 140(A) 0 - 100 mg/dL Blood Venous blood specimen / Unknown Historical Provider LAB BLOOD ORDERABLES Cherie l Result from Last 3 Months or Most Recently Relevant to Health Maintenance Insurance [facility] Care Teams Grave Cleaner Relationship Specialty Start Date End Date Valerie Lazaro MD [address] [place] [phone] PCP - General 02/03/24
--- OUTSIDE RECORDS SUMMARY | 2025-05-07 09:54 | XMS_ITS | Encounter Summary ---
Author Organization [facility] Address [address] [place] [address] Care Team Providers Care Fitter/Welder Name Role Phone Valerie Lazaro MD Primary Care Provider [phone] Reason for Visit * Reason Onset Date Comments Med Refill 04/29/2025 Phentermine 37.5 mg Encounter Details Date Type Department Care Team ([facility] st Contact Info) Description 04/29/2025 Telephone Bariatric Surgery - [place] [address] [facility] [address] [place] [phone] Tanja Pate MD [address] [place] [phone] Social History Tobacco Use Types Packs/Day Years [...] encounter Progress Notes * Regina Olivarez - 05/05/2025 9:47 AM EDT Patient requesting update on refill * Regina Olivarez - 04/29/2025 2:05 PM EDT Patient requesting refill on Phentermine 37.5 MG documented in this encounter Plan of Treatment Upcoming Encounters Date Type Department Care Team (Late st Contact Info) Description 06/30/2025 8:30 AM EST Office Visit Bariatric Surgery - [place] [address] [facility] [address] [place] [address] Tanja Pate MD [address] [place] [phone] documented as of this encounter Visit Diagnoses Not on filedocumented in this encounter Care Teams Fitter/Welder Relationship Specialty Start Date End Date Valerie Lazaro MD [address] [place] [phone] PCP - General 02/03/24 documented as of this encounter
[2025-05-07 11:51] LABS: Microalbum/Creatinine Ratio Ur 6.6 ug/mg cr (<30)
[2025-05-07 13:57] LABS: MANUAL DIFF FLAG NO
[2025-05-07 14:00] LABS: Hematocrit 44.0 % (37.0-47.0); Hemoglobin 13.8 g/dl (12.0-16.0); Imm Gran Abs Auto 0.02 X10*3/uL (0.00-0.03); Imm Gran Pct Auto 0.3 % (0.0-0.4); Lymphocytes Absolute Auto 1.6 X10*3/uL (1.2-4.9); Mean Corpuscular HGB Conc 31.4 g/dl (31.0-35.0); Mean Corpuscular Hemoglobin 28.4 pg (27.0-33.0); Mean Corpuscular Volume 90.5 fL (80.0-98.0); NRBC Abs Auto 0.000 X10*3/uL (0.0-0.012); NRBC Pct Auto 0.0 /100WBC (0.0-0.2); Platelet Count 405 X10*3/uL (160-400); Red Blood Count 4.86 X10*6/uL (4.20-5.50); White Blood Count 5.8 X10*3/uL (4.8-10.8)
[2025-05-07 14:08] LABS: Total Hemoglobin (HGBA1C) 3506.7248 umol/L
[2025-05-07 14:28] LABS: Alanine Aminotransferase 28 U/L (0-31); Albumin Level 4.6 g/dL (3.5-5.0); Alkaline Phosphatase 81 U/L (39-117); Anion Gap 14 (12-20); Aspartate Amino Transferase 27 U/L (5-31); Blood Urea Nitrogen 17 mg/dL (9-16); Calcium 9.9 mg/dL (8.4-10.2); Carbon Dioxide 27 mmol/L (22-29); Chloride 108 mmol/L (96-108); Cholesterol 196 mg/dL (<200); Estimated Glomerular Filt Rate > 60; HDL Cholesterol 68 mg/dL (>40); Potassium 5.8 mmol/L (3.3-5.1); Sodium 143 mmol/L (135-145); Total Protein 7.8 g/dL (6.5-8.0); Triglycerides 88 mg/dL (<150)
== END 2025-05-07 09:52 | disposition home or self-care (01) ==
LOC: HO.HMGCLDS 09:51
PROVIDERS: PCP Internal Medicine; Visit Provider Internal Medicine
DX: I10 Essential (primary) hypertension (principal); E11.9 Type 2 diabetes mellitus without complications; E78.5 Hyperlipidemia, unspecified
CPT/HCPCS: 36415; 80053; 80061; 82043; 82570; 83036; 85025

== ENCOUNTER 2025-05-09 13:54 | Outpatient (AMB) | payer OTHER, SELFPAY ==
--- OUTSIDE RECORDS SUMMARY | 2023-10-10 09:45 | XMS_ITS | Continuity of Care Document ---
Author Organization [facility] Address [address] [address] Phone Care Team Providers Care Molding Engineer Name Role Phone Campos OD, FAAO, Peyton Unavailable Unavailable Allergies, Adverse Reactions, Alerts Substance Reaction Status Criticality No Known Allergies Active No Inform ation Procedures Procedure Date REFRACTION COMPREHENSIVE EYE EXAM REFRACTION COMPREHENSIVE EYE EXAM Advance Directives Directive Yes / No Effective Date File Name No Information Encounters Encounter Description Practice Location Reason(s) For Visit Diagnoses Date Provider Providers Copied on Encounter [facility] , [address] [place] [address], [id number] , tel: [phone] Primary Care Near vision blur (chief complaint) Myopia, bilateralOther chorioretinal scars, left eyeDry eye syndrome of bilateral lacrimal glands Mar-2 4 Campos Peyton. [address] [place] [address], [id number] , . tel: [phone] [facility] , [address] [place] [address], [id number] , tel: [phone] Primary Care Distance vision blur (chief complaint) PresbyopiaMeibomian gland dysfnct left eye, upper and lower eyelidsMeibomian gland dysfnct right eye, upper and lower eyelidsOther chorioretinal scars, left eye Mar-3 0 2 [place]. [address] [place] [address], [id number] , . tel: [phone] Family History Family Member Type Diagnosis Age At Onset Father Problem hypertension Mother Problem hypertension Payers Payer name Insurance type Covered libertarian ID Andrea tillman(s) [facility] [employer] CI [id number] Social History Type Description Quantity Date Captured Comments Alcohol Use Details Unknown Caffeine Use Details Unknown Tobacco Use Status Current non-smoker Smoking Status Never smoker Non-Smoking Tobacco Use Details : No Details Available : No Details Available Sex Female Gender Identity Female Chief Complaint And Reason For Visit From encounter dated '10/10/2023 13:45'. Near vision blur (chief complaint). Description: 47 y/o F presents with NV blur OU sc-- currently wears PALs that are ~ 1year old-- reports clear DV/NV through specs Reason For Referral Reason For Referral No Information History Of Present Illness Encounter Date Complaint History Of Prese nt Illness Near vision blur 47 y/o F presen ts with NV blur OU sc-- currently wears PALs that are ~ 1year old-- reports clear DV/NV through specs Distance vision blur The 45 year old female presents for evaluation of Distance and Near vision blur in the right eye and left eye.-- Pt used to wear glasses a long time ago but no longer has those specs -- 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 seeing the small holes in the beads when uncorrected-- Pt also reports distance vision blur uncorrected Functional Status Date Functional Assessmen t No Information Instructions Date Instruction Additional Infor mation Impression/Plan Related to Dry e ye syndrome of bilateral lacrimal glands Impression/Plan Related to Myopi a, bilateral Impression/Plan Related to Other chorioretinal scars, left eye Impression/Plan Related to Presb yopia Impression/Plan Related to Meibo maria fernanda gland dysfnct left eye, upper and lower eyelids Impression/Plan Related to Meibo maria fernanda gland dysfnct right eye, upper and lower eyelids Impression/Plan Related to Other chorioretinal scars, left eye Assessments Type Assessment Date assessment Myopia, bilateral assessment Other chorioretinal scars, left eye assessment Dry eye syndrome of bilateral la crimal glands impression Dry eye syndrome of bilateral lacrimal glands: H04.123.-- mild signs and symptoms impression Myopia, bilateral: H52.13 impression Other chorioretinal scars, 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
[2025-05-09 14:15] VITALS: BP 104/78; PULSE 92; RESP 18; O2SAT 97; BMI 25.2
--- NOTE | 2025-05-09 14:15 | A.OFFPC_ITS ---
Vital Signs 05/09/25 14:15 Height 5 ft 2 in Weight 138 lb BMI 25.2 BP 104/78 Blood Pressure Location Rt brachial Position Sitting Respiration 18 Pulse 92 Pulse Source Pulse Oximeter Pulse Oximetry (%) 97 Intake Visit Reasons: DM followup Intake Note: Pt is here today for a follow up visit on DM. Allergies pravastatin Adverse Reaction (Intermediate, Verified 01/06/25 08:30) myalgia Medication List - Last Reconciled 05/09/25 by Valerie Lazaro MD acyclovir 5% 1 appl topical 6XD 7 days amlodipine-olmesartan 5-20 mg 1 tab PO DAILY blood sugar diagnostic (OneTouch Ultra Test strips) 1 qd blood-glucose sensor (FreeStyle Vincenzo 3 Sensor device) As directed citalopram 40 mg PO DAILY 90 days empagliflozin (Jardiance) 10 mg PO DAILY FreeStyle Lite Meter (blood-glucose meter) Test blood sugar once a day NS FreeStyle Lite Strips (blood sugar diagnostic) Test blood sugar once a day NS lancets (FreeStyle Lancets) Test blood sugar once a day metformin ER 1,500 mg (2 x 750 mg) PO DAILY phentermine 15 mg PO DAILY rosuvastatin 10 mg PO DAILY Tobacco use date assessed: 05/09/25 Dental Screening Dental Screen Date: 01/06/25 HPI DM followup HPI Details Pt presents for f/u HTN, DM 2, hyperlipid, stable on meds. Pt has been on Phentermine since 01/05 and lost 30 lbs and is established with weight management program. [facility] Medical History (Updated 05/09/25 @ 15:44 by Valerie Lazaro MD) HTN (hypertension) Right tennis elbow Annual physical exam Foot pain Type 2 diabetes mellitus Ovarian cyst Back pain Hyperlipidemia Anxiety Surgical History No pertinent past surgical history Family History Father No problems noted. Mother Non-insulin dependent diabetes mellitus Daughter No problems noted. Brother No problems noted. Brother No problems noted. Brother No problems noted. Brother No problems noted. Social History Housing: House Alcohol intake: never Patient Tobacco Use Status: Never used Tobacco e-Cigarette/Vaping Use: Currently Using service: No Current occupational status: employed Cognitive needs: No Hearing needs: No Vision needs: Yes Questionnaire Thrive Questionnaire Date Thrive assessed: 01/06/25 I am a: Patient What is your living situation today?: I have a steady place to live Within the past 12 months, did the food you bought not last and you didn't have the money to get more?: Never true Within the past 12 months, did you worry whether your food would run out before you got money to buy more?: Never true Do you have trouble paying for medicines?: No Do you have trouble getting transportation to medical appointments?: No Do you have trouble paying your heating and electricity bill?: No Do you have trouble taking care of your child, family member or friend?: No Do you have trouble with day-to-day activities such as bathing, preparing meals, shopping, managing finances, etc.?: No Are you currently unemployed and looking for a job?: No Are you interested in more education?: No Please select the resources that you would like help with: None Currently or been in a relationship where the following occur: No concerns reported THRIVE Score: 0 ASUNCION-7 AMB Questionnaire ASUNCION-7 Date ASUNCION - 7 assessed: 01/06/25 Source: Developed by Drs. Kg Ellington, Elisabeth Sandoval, Jg Yan and colleagues, with an educational jacob from [employer]. Review of Systems Const All systems reviewed & are unremarkable except as noted in HPI and below Eyes Reports no additional complaints ENT Reports no additional complaints Card Reports no additional complaints Resp Reports no additional complaints GI Reports no additional complaints Reports no additional complaints Physical exam (Primary Care) Vital Signs: Last Vital Signs Pulse 92 05/09/25 14:15 Resp 18 05/09/25 14:15 BP 104/78 05/09/25 14:15 Pulse Ox 97 05/09/25 14:15 BMI result Body Mass Index 25.2 Tobacco/Smoking Status: Tobacco use Status Tobacco use date assessed 05/09/25 05/09/25 14:17 Patient Tobacco Use Status Never used Tobacco 05/09/25 14:15 e-Cigarette/Vaping Use Currently Using 05/09/25 14:15 Thrive Assessment: Date of Thrive Assessment Date Thrive assessed 01/06/25 05/09/25 14:15 Currently or been in a relationship where the following occur: No concerns reported Const General: no acute distress HENMT Head: Yes normal to inspection Mouth: Normal oral and palatal mucosa present Neck Neck: Yes supple Resp Effort & Inspection: normal respiratory effort Auscultation: clear to auscultation bilaterally Cardio Rhythm: regular rhythm Heart sounds: S1 normal heart sound present and S2 normal heart sound present GI Inspection: Yes normal to inspection Palpation (GI): Soft to palpation Percussion: Yes normal to percussion Auscultation: normal bowel sounds Coding Level of Care Code Est Pt Level 4 (72932) Diagnoses HTN (hypertension) I10 Type 2 diabetes mellitus E11.9 Hyperlipidemia E78.5 Overweight E66.3 GERD (gastroesophageal reflux disease) K21.9 Assessment & Plan Assessment & Plan (1) HTN (hypertension): Code(s): I10 - Essential (primary) hypertension Category: Medical Plan: Continue current medications. For hyperkalemia check potassium level and if it is elevated patient will decrease amlodipine with olmesartan to half a tablet a day. (2) Type 2 diabetes mellitus: Code(s): E11.9 - Type 2 diabetes mellitus without complications Category: Medical Plan: A1c is 6.2, continue metformin and Jardiance, ADA diet regular physical activity. Patient is planning on losing more weight. She will follow-up in 3 months with a fasting labs before (3) Hyperlipidemia: Comment: Intolerant to pravastatin, myalgia Code(s): E78.5 - Hyperlipidemia, unspecified Category: Medical Plan: Continue rosuvastatin (4) Overweight: Code(s): E66.3 - Overweight Category: Medical Plan: Patient is planning to continue taking phentermine until the end of this year. Patient is established with weight management program (5) GERD (gastroesophageal reflux disease): Code(s): K21.9 - Gastro-esophageal reflux disease without esophagitis Category: Medical Plan: For chronic GERD symptoms despite taking PPIs barium swallow will be obtained to evaluate for hiatal hernia Orders: Orders Basic Metabolic Panel Today I10 - Essential (primary) hypertension Comprehensive [place]. Panel Fast 3 Months E11.9 - Type 2 diabetes mellitus without complications, E78.5 - Hyperlipidemia, unspecified, I10 - Essential (primary) hypertension Complete Blood Count Auto Diff 3 Months E11.9 - Type 2 diabetes mellitus without complications, E78.5 - Hyperlipidemia, unspecified, I10 - Essential (primary) hypertension Hemoglobin A1c 3 Months E11.9 - Type 2 diabetes mellitus without complications, E78.5 - Hyperlipidemia, unspecified, I10 - Essential (primary) hypertension Microalbumin, Random (w Creat) 3 Months E11.9 - Type 2 diabetes mellitus without complications, E78.5 - Hyperlipidemia, unspecified, I10 - Essential (primary) hypertension [place] upper GI w Ba Swallow Today K21.9 - Gastro-esophageal reflux disease without esophagitis Lipid Panel 3 Months E11.9 - Type 2 diabetes mellitus without complications, E78.5 - Hyperlipidemia, unspecified, I10 - Essential (primary) hypertension
--- OUTSIDE RECORDS SUMMARY | 2025-05-09 17:36 | XMS_ITS | Clinical Summary ---
Author Organization [facility] [address] [place] [address] [address] [place] [phone] Phone Care Team Providers Care [employer] Superintendent Name Role Phone Valerie Lazaro MD Primary Care Provider [phone] Allergies No known active allergies Medications amLODIPine-olme [...] Care Team Description 04/29/2025 Telephone Bariatric Surgery [address] [place] [address] Tanja Pate MD from Last [...] 02/22/2016 DX:Depression Hyperlipidemia 02/22/2016 DX:Hyperlipidemi a Melanoma ([facility]/HCC V24, [facility] V28) DX:Melanoma ([facility]) Prediabetes DX:Prediabetes Essential (primary) [...] AM EST Office Visit Bariatric Surgery - [address] [place] [address] Tanja Pate MD [address] [place] [phone] Health Maintenance Due Date Last Done [...] is recommended in 1 year. Mammo Location: [facility], [address] [place] [address], [address], . -------- FINAL REPORT -------- Dictated By: Luana Xie Dictated Date: 12/13/2024 10:44 ET Assigned Physician: Luana Xie Reviewed and Electronically Signed By: Luana Xie Signed Date: 12/13/2024 10:47 ET Workstation ID: [id number] Transcribed By: Self Edit Transcribed Date: 12/13/2024 [...] is recommended in 1 year. Mammo Location: [facility], [address] [place] [address], [facility], . -------- FINAL REPORT -------- Dictated By: Luana Xie Dictated Date: 12/13/2024 10:44 ET Assigned Physician: Luana Xie Reviewed and Electronically Signed By: Luana Xie Signed Date: 12/13/2024 10:47 ET Workstation ID: [id number] Transcribed By: Self Edit Transcribed Date: 12/13/2024 10:44 ET us Gelacio Hoffman MD IMG BI PROCEDURES Final Resu lt * Cervical Cancer Screening: HPV (05/04/2020) Pathologist On license of [facility] Cervical Cancer Screening: HPV negative,a bstracted Historical Provider HEALTH MAINTENANCE Final Result * (ABNORMAL) Lipid panel (08/31/2015) [facility] LDL/HDL Ratio 5(A) 0 - 4 Triglycerides 404(A) 0 - 150 mg/dL Cholesterol 271(A) 0 - 200 mg/dL HDL 51 >=40 mg/dL LDL Cholesterol 140(A) 0 - 100 mg/dL Blood Venous blood specimen / Unknown Historical Provider LAB BLOOD ORDERABLES Cherie l Result from Last 3 Months or Most Recently Relevant to Health Maintenance Insurance [facility] Care Teams [employer] Superintendent Relationship Specialty Start Date End Date Valerie Lazaro MD [address] [place] [phone] PCP - General 02/03/24
--- OUTSIDE RECORDS SUMMARY | 2025-05-09 17:36 | XMS_ITS | Encounter Summary ---
Author Organization [facility] Address [address] [place] [address] Care Team Providers Care Auto Transmission Technician Name Role Phone Valerie Lazaro MD Primary Care Provider [phone] Reason for Visit * Reason Onset Date Comments Med Refill 04/29/2025 Phentermine 37.5 mg Encounter Details Date Type Department Care Team ([facility] st Contact Info) Description 04/29/2025 Telephone Bariatric Surgery - [place] [address] [place] [phone] Tanja Pate MD [address] [place] [phone] Social History Tobacco Use Types Packs/Day Years [...] AM EST Office Visit Bariatric Surgery - [place] [address] [place] [address] Tanja Pate MD [address] [place] [phone] documented as of this encounter Visit Diagnoses Not on filedocumented in this encounter Care Teams Auto Transmission Technician Relationship Specialty Start Date End Date Valerie Lazaro MD [address] [place] [phone] PCP - General 02/03/24 documented as of this encounter
== END 2025-05-09 15:48 | disposition home or self-care (01) ==
LOC: HO.HMCC 13:55
PROVIDERS: PCP Internal Medicine; Visit Provider Internal Medicine
DX: I10 Essential (primary) hypertension (principal); E11.9 Type 2 diabetes mellitus without complications; E78.5 Hyperlipidemia, unspecified; E66.3 Overweight; K21.9 Gastro-esophageal reflux disease without esophagitis

== ENCOUNTER 2025-05-09 13:54 | Outpatient (REF) | payer OTHER, SELFPAY ==
[2025-05-09 16:26] LABS: Anion Gap 11 (12-20); Blood Urea Nitrogen 14 mg/dL (9-16); Calcium 9.5 mg/dL (8.4-10.2); Carbon Dioxide 30 mmol/L (22-29); Chloride 103 mmol/L (96-108); Estimated Glomerular Filt Rate > 60; Potassium 4.3 mmol/L (3.3-5.1); Sodium 140 mmol/L (135-145)
== END 2025-05-09 13:55 | disposition home or self-care (01) ==
LOC: HO.HMGCLDS 13:54
PROVIDERS: PCP Internal Medicine; Visit Provider Internal Medicine
DX: I10 Essential (primary) hypertension (principal); E11.9 Type 2 diabetes mellitus without complications; E78.5 Hyperlipidemia, unspecified; E66.3 Overweight; K21.9 Gastro-esophageal reflux disease without esophagitis; Z79.84 Long term (current) use of oral hypoglycemic drugs; Z79.899 Other long term (current) drug therapy; Z68.25 Body mass index [BMI] 25.0-25.9, adult
CPT/HCPCS: 36415; 80048; 99212